=== PATIENT | male | born 1960 | race Caucasian/White ===

== ENCOUNTER → 2021-07-19 11:38 | Outpatient (CLI) | payer OTHER, SELFPAY ==
[2021-07-19 12:53] LABS: COVID19 -Nasal RAPID Negative (Negative)
== END ==
PROVIDERS: Family Provider Family Medicine; PCP Family Medicine; Visit Provider Family Medicine Sleep Medicine
DX: Z20.822 Contact with and (suspected) exposure to COVID-19 (principal)
CPT/HCPCS: 87635; C9803

== ENCOUNTER 2021-07-20 06:06 | Day surgery (SDC) | payer OTHER, SELFPAY ==
[2021-07-12 13:47] VITALS: BMI 27.5
[2021-07-20] VITALS (16 sets, daily range): BP systolic 83–151; BP diastolic 53–89; PULSE 52–87; RESP 15–189; TEMP 35.4–36.7; O2SAT 93–98; BMI 27.5
--- NOTE | 2021-07-20 | DI.RAD.S_ITS ---
PROCEDURE: XR HIP W PEL IF DONE LT 2V INDICATIONS: LEFT SEUN TECHNIQUE: Intraoperative fluoroscopic views of the left hip were acquired. COMPARISON: None. FINDINGS: Bones: Intraoperative fluoroscopic views demonstrate placement of a left total hip arthroplasty. IMPRESSION: Intraoperative fluoroscopic views of left hip arthroplasty. Dictated by: Maria Victoria Xie M.D. on 07/20/2021 at 11:02 Approved by: Maria Victoria Xie M.D. on 07/20/2021 at 11:03
--- NOTE | 2021-07-20 06:00 | DI.RAD.S_ITS ---
PROCEDURE: XR HIP W PEL IF DONE LT 2V INDICATIONS: prosthesis placement total left hip TECHNIQUE: AP pelvis and lateral view of the left hip acquired. COMPARISON: [facility], [place], XR HIP W PEL IF DONE LT 2V, 07/20/2021, 10:13. FINDINGS: Bones: Patient is status post left total hip arthroplasty, with hardware components in expected positions. The hip joint appears congruent. The visualized bony structures appear intact. Soft tissues: Overlying postoperative changes are noted. No suspicious soft tissue densities. IMPRESSION: Status post left total hip arthroplasty. Dictated by: Maria Victoria Xie M.D. on 07/20/2021 at 11:27 Approved by: Maria Victoria Xie M.D. on 07/20/2021 at 11:28
[2021-07-20] MEDS: ACETAMINOPHEN 325 MG TABLET 975 MG PO (06:42)
[2021-07-20] MEDS: CELECOXIB 200 MG CAPSULE PO (06:43)
[2021-07-20] MEDS: PREGABALIN 75 MG CAPSULE PO (06:43)
[2021-07-20] MEDS: VANCOMYCIN 1,000 MG/200 ML PIGGYBACK 200 MG IV (07:01)
[2021-07-20] MEDS: LACTATED RINGERS 1,000 ML 42 ML IV ×2 (07:02→11:23)
--- NOTE | 2021-07-20 07:36 | PM.PREOP ---
Pre-operative Note COVID-19 COVID-19 status: Negative Interval Note History & Physical reviewed/Exam performed by Physician: Yes Changes to H&P: No
--- NOTE | 2021-07-20 07:37 | P.OP_ITS ---
Operative Date/Time/Diagnoses Date of procedure: 07/20/21 Time of procedure: 07:40 Pre-op diagnosis: left hip OA Post-op diagnosis: same Procedure & Clinicians Procedure: Left total hip arthroplasty anterior approach Same procedure as scheduled: Yes Indications: The patient has had progressively worsening left hip pain with radiographic vogt ges consistent with arthritis. Non-operative management has failed and the patient has requested total hip replacement. The risks, benefits and alternatives to surgery were discussed with the patient prior to proceeding. Risks discussed included, but were not limited to, failure to relieve pain, leg length discrepancy, dislocation, stiffness, infection, nerve damage, deep venous thrombosis, pulmonary embolism, stroke, coma, heart attack, permanent paralysis and , as well as the potential need for eventual revision of the prosthetic. Surgeon: Gloria Singh Silk Conditioner: Dayron Aragon Anesthesia Type: General and Spinal Operative Notes Findings: Severe left hip osteoarthritis, adequate stability, adequate bone Closure Type: primary Specimen(s): none sent Prosthetic devices, grafts, tissues, transplants, or devices: Singh and nephew size 60 R3 cup, size 8 high offset anthology stem, 36 by - 3 femoral head, 36 neutral poly liner Estimated Blood Loss (mL): 250 Blood products transfused: none Procedure in detail: The patient was brought to the operating room. Patient was carefully positioned in the supine position. Time-out was performed and antibiotics were given. Anesthesia was induced. He was positioned in the on the table in order to allow hyperextension of the hip. The left lower extremity was prepped and draped in a standard sterile fashion. An anterior left hip incision was made 1 fingerbreadth lateral to the anterior superior iliac spine and extended distally towards the greater trochanter. Dissection was carried out through skin and subcutaneous tissues. Superficial hemostasis was achieved. The fascia over the tensor fascia day was defined and incised with a knife. Two Allis clamps were used to grasp the fascia. Tensor fascia day was retracted laterally. A gelpi retractor was placed. Dissection was carried out down along the neck. The circumflex vessels were carefully identified and cauterized with the Aqua Mantis. There was good visualization of the femoral neck. A Cobra was placed superior to the neck and the gluteus fibers were carefully stripped from that superior aspect of the capsule. A 2nd retractor was placed along the inferior aspect of the neck. The rectus insertion along the capsule was partially released. A 3rd retractor that was then gently placed over the rim of the acetabulum under the rectus. Capsule was carefully incised and released from the intertrochanteric line circumferentially superior to the mid sagittal line and inferiorly to the mid sagittal line until the lesser trochanter was palpable. A tag stitch was placed both in the superior and inferior limb of the capsular insertion. Along the acetabulum capsule was also released up to the mid sagittal 12:00 position. A portion of the labrum was resected. A saw was used to perform an osteotomy at the level of the intertrochanteric line and the junction of the superior femoral neck leaving approximately 1 finger breath of residual inferior neck above the lesser trochanter. A 2nd cut was made along the femoral neck at the base of the head and a napkin ring of neck was removed. Corkscrew was placed in the femoral head and the head was removed without difficulty. Retractors were then repositioned around the acetabulum. Residual labrum was resected and additional osteophytes were removed. A reamer that was 4 mm below the templated size was placed by hand in the acetabulum and it was reamed to centralize the acetabulum. It was then reamed up to 2 under the templated size and fluoroscopy was brought in to confirm the position of the reaming and depth of reaming. I reamed 1 under the anticipated size. A trial cup was placed and noted that it was appropriately sized and fluoroscopy confirmed position and depth. The component was open and inserted without difficulty fluoroscopic imaging was used to confirm that the cup had been adequately seated and was well positioned. It was further stabilized with 2 screws. Neutral poly liner was placed. The cup was tested and noted to be stable. Attention was then directed to the femur. The femur was gently hyperextended additional capsular release was performed as needed in order to allow adequate visualization of the proximal femur with elevation of the femur. Patient was placed in a hyperextended slightly adducted position with maximum external rotation. Box osteotome was used to check for any residual neck as well as sclerotic bone along the trochanter. [place] pepper was placed in the femur. Additional broaching was performed. Canal finder was used to determine the alignment of the canal and position. Size 1 broach was placed. The canal was then appropriately broached up to the templated size as long as there was adequate stability of the broach and serial advancement of the broach without excessive impingement. Specific attention was directed at avoiding varus attempting to direct the distal aspect of the broach more anteriorly and avoiding excessive anteversion. Trial reduction showed acceptable range of motion, good stability, no posterior impingement, nondenominational of leg length and appropriate lateral shuck. I also hyperflexed the hip and checked that there was no impingement anteriorly and there was good stability with flexion, a dduction and internal rotation. Marcaine and Exparel were injected. The stem was placed without difficulty. Repeat trial reduction and x-ray showed acceptable overall position, length, and no evidence of the femoral fracture. Final head was placed. Wound was meticulously irrigated with normal saline. The hip was reduced and additional Exparel and Marcaine were injected. The capsule was closed with interrupted nonabsorbable sutures. The fascia of the tensor was closed with interrupted and running Vicryl. No drain was placed. Any tensor fascia day muscle that appeared to be contused or injured which was a minimal amount was carefully resected. Capsule around the tensor was injected with Exparel and Marcaine. The skin was closed with barbed stitches for the subcutaneous tissue and skin. We also used surgical glue. The wound was dressed sterilely. Brief Betadine soak was also used and was meticulously irrigated with normal saline. Patient was transferred to recovery room in satisfactory condition. Complications: none Post-operative Condition: stable Disposition: Acute Care Plan for aftercare: The patient will be maintained on a standard total hip replacement protocol with weight bearing as tolerated and anterior hip precautions. The patient will receive Aspirin and sequential compression devices for DVT prophylaxis. The patient will be discharged home when safe for the home environment.
[2021-07-20] MEDS: TRANEXAMIC ACID 1,000 MG VIAL 1000 MG INJ ×2 (08:05→10:58)
[2021-07-20] MEDS: CEFAZOLIN 2 GM/20 ML SYRINGE IV ×2 (08:10→15:33)
--- NOTE | 2021-07-20 08:38 | SUR.OPER ---
Patient supine on padded Royal table, one arm on padded arm board at <90, other arm padded and secured with tape across patient's chest with elbow gel padded, both legs secured in padded traction boots with heels properly in boot and positioned per surgeon, padded post at patient's groin, pressure points checked and padded.
[2021-07-20] MEDS: BUPIVACAINE 0.25% (PF) 60 ML, EPINEPHrine 0.3 MG INJ (08:48)
[2021-07-20] MEDS: BUPIVACAINE LIPOSOME 266 MG/20 ML VIAL INJ (10:39)
[2021-07-20] MEDS: ONDANSETRON 4 MG/2 ML INJ IV ×2 (11:12→12:03)
[2021-07-20] MEDS: LACTATED RINGERS 1,000 ML 125 ML IV (12:05)
[2021-07-20] MEDS: ACETAMINOPHEN 325 MG TABLET 650 MG PO ×2 (13:26→21:27)
[2021-07-20] MEDS: IBUPROFEN 400 MG TABLET PO ×3 (13:27→21:27)
[2021-07-20] MEDS: OXYCODONE IR 5 MG TABLET 10 MG PO ×2 (13:42→19:04)
--- NOTE | 2021-07-20 14:46 | PC.NURSE ---
Addendum entered by Christine Mena R.N. 07/20/21 19:34: pt given 500 cc bolus per MD orders for hypotension. He later is much improved normotensive, and denies dizziness and w/o n/v. He is able to ambulate with FWW to nurse's station and back to his room and void w/o difficulty. Original Note: Pt arrived from PACU to Room 218 at 1135 a.m. He is very talkative and pleasant. Reports feeling dizzy and nauseated with a head ache. Zofran administered and LR at 125ml/hr. Pt reports dull sensation to BLE's, able to move BLE's +CMS. He vomits x2 100 cc of emesis. BP slightly low, SB. Pt reports feeling somewhat better after vomiting. He reports increased pain to L hip at 7/10 and is given oxycodone 10mg PRN. MD at bedside this afternoon encouraging movement, nicotine patch removed. Encouraged patient to dangle at edge of bed. At 1400 he is assisted to dangle at the edge of bed, and reports an increase in dizziness and nausea, noted BP with large fluctuations. He is assisted to lay back down and BP remains 120's /50's HR 60's. He requests to rest, and reports pain controlled. Continuous monitoring. He is due to void by 1700.
--- NOTE | 2021-07-20 15:10 | PT.IPTN ---
Current Diagnoses Unilateral primary osteoarthritis, left hip (07/20/21) Surgery Performed Operation Date: 07/20/21 07:45 Actual Procedures p Total Hip Arthroplasty/Anterior Approach(Left) - Gloria Singh MD Physical Therapy Treatment Note M3 PT-IP Subjective Start: 07/20/21 15:45 Freq: NEEDED Status: Active Protocol: Document 07/20/21 15:10 AB (Rec: 07/20/21 15:49 AB [id number]) Subjective Physical Therapy Visit Type Type Administrative Note Notes EMR reviewed and checked pt. nurse in room with pt and pt has BP of 79/39. nurse stated that they sat pt on EOB and with decrease in BP. pt also has nausea and dizziness. pt supine in bed and spouse in room. agreed to provide PLOF and home set up information. PT eval on hold due to low BP and will check pt tomorrow. Pt lives at [place] and wants to see PT [place] tomorrow [place]. set up PT tomorrow with pt and spouse at ~ 930 am and earlier if possible and pt agreed.
[2021-07-20] MEDS: LACTATED RINGERS 500 ML 1000 ML IV (15:35)
[2021-07-20] MEDS: DOCUSATE 100 MG CAPSULE PO (21:28)
[2021-07-20] MEDS: ASPIRIN EC 81 MG TABLET PO (21:28)
[2021-07-21] MEDS: LACTATED RINGERS 1,000 ML 125 ML IV (00:23)
[2021-07-21] MEDS: IBUPROFEN 400 MG TABLET PO ×3 (00:24→08:50)
[2021-07-21] MEDS: CEFAZOLIN 2 GM/20 ML SYRINGE IV (00:24)
[2021-07-21 05:45] LABS: Hematocrit 35.1 % (41-53)
[2021-07-21 06:21] VITALS: BP 121/69; PULSE 67; RESP 17; TEMP 36.7; O2SAT 97
--- NOTE | 2021-07-21 07:38 | P.DS_ITS ---
History of Present Illness History of Present Illness Date Patient Seen: 07/21/21 Time Patient Seen: 07:38 Chief complaint: Left hip pain s/p left SEUN Narrative: Patient is complaining of [id number] left hip pain this morning. He denies any new numbness or tingling. He notes his postoperative nausea and vomiting have resolved. Overall he is very anxious to get home on the [place] this morning. He has not worked with physical therapy yet. Discharge Providers Provider Discharge Date: 07/21/21 Primary care physician: Max House MD Consults: 07/20/21 06:00 Consult to Anesthesiology Routine Comment: Consulting Provider: Anesthesiologist Reason for consultation: Regional block for post operative pain control 07/20/21 11:51 Consult to Discharge Planning Routine Comment: Consult to Physical Therapy Evaluate & Treat Comment: Physician Instructions: post op SEUN protocol Consult to Respiratory Therapy Evaluate & Treat Comment: Physician Instructions: Evaluate and treat Discharge provider: Lucy Black PA-C Summary Hospital Course Discharge Diagnosis: Left hip osteoarthritis Hospital Course: Operative Date/Time/Diagnoses Date of procedure: 07/20/21 Time of procedure: 07:40 Procedure & Clinicians Procedure: Left total hip arthroplasty anterior approach Same procedure as scheduled: Yes Indications: The patient has had progressively worsening left hip pain with radiographic changes consistent with arthritis. Non-operative management has failed and the patient has requested total hip replacement. The risks, benefits and alternatives to surgery were discussed with the patient prior to proceeding. Risks discussed included, but were not limited to, failure to relieve pain, leg length discrepancy, dislocation, stiffness, infection, nerve damage, deep venous thrombosis, pulmonary embolism, stroke, coma, heart attack, permanent paralysis and , as well as the potential need for eventual revision of the prosthetic. Surgeon: Gloria Singh Lineman Service Or Work Dispatcher: Dayron Aragon Anesthesia Type: General and Spinal Operative Notes Findings: Severe left hip osteoarthritis, adequate stability, adequate bone Closure Type: primary Specimen(s): none sent Prosthetic devices, grafts, tissues, transplants, or devices: Singh and nephew size 60 R3 cup, size 8 high offset anthology stem, 36 by - 3 femoral head, 36 neutral poly liner Estimated Blood Loss (mL): 250 Blood products transfused: none Status at Discharge Cognitive/behavioral status at discharge: oriented Functional status at discharge: uses cane/walker Overall status at discharge: patient is progressing back to baseline Exam Vital Signs (past 8 hours): - 07/21/21 06:21 Temperature 98.0 F Pulse Rate 67 Respiratory Rate 17 Blood Pressure 121/69 Pulse Oximetry 97 Oxygen Delivery Method Room Air Oxygen Flow Rate 0 Narrative Exam Narrative: Pleasant but anxious 60-year-old male, resting comfortably in his chair, no acute distress. Dressing is clean, dry, intact. Bilateral lower extremity: Motor functions are grossly intact, sensation is grossly intact to light touch, calves are soft and nontender to palpation. Objective Labs Result Diagrams: 07/21/21 05:20 Labs: Laboratory Results - last 24 hr 07/21/21 05:20 Hgb 12.0 L Hct 35.1 L PFSH Medical History Osteoarthritis Surgical History History of vasectomy Hx of nasal septoplasty Hx of tonsillectomy Status post appendectomy (1992) Social History household members: spouse Smoking Status: Current every day smoker alcohol intake: current Discharge Assessment & Plan Assessment and Plan Assessment: Stable status post left total hip arthroplasty, anterior approach Plan of Treatment: -mobilize with PT. Weightbearing as tolerated with front wheel walker. Maintain anterior hip precautions x6 weeks -continue multimodal pain management -aspirin 81 mg twice daily x6 weeks for DVT prophylaxis -DC home today once cleared by PT Discharge Plan Discharge Plan Patient Disposition: Home Discharge orders & Medications Discharge Orders: Discharge (Order); Ordered 07/21/21 Ordered By: Lucy Black Prescriptions: New acetaminophen 500 mg capsule 500 mg PO Q4H MDD Max 3000 mg per day PRN (Reason: fever or pain) Qty: 90 0RF aspirin [Adult Low Dose Aspirin] 81 mg tablet,delayed release (DR/EC) 81 mg PO BID 42 Days Qty: 84 0RF Rx Instructions: Prevent blood clots docusate sodium 100 mg tablet 100 mg PO BID PRN (Reason: Constipation from narcotic pain meds) Qty: 20 0RF ibuprofen 400 mg Tablet 400 mg PO Q4HR MDD Max 2400 mg per day PRN (Reason: Pain/inflammation) Qty: 90 0RF oxycodone 5 mg Tablet 10 mg PO Q4H PRN (Reason: Pain, Severe (7-10)) Qty: 42 0RF Discontinued ibuprofen 800 mg Tablet 800 mg PO DAILY PRN (Reason: Pain) 0RF Follow up/Referrals: Gloria Singh MD [Physician] - (10-14 days for postoperative visit) Max House MD [Primary Care Provider] - Diet/Activity/Treatments Diet: Diet as Tolerated Other treatments: Medications: -Aspirin 81mg twice daily x6 weeks to prevent blood clots. -OTC Tylenol 500 mg 1 tablet every 4 hours as needed for pain/fever. Max 6 tablets per day. -Ibuprofen 400 mg 1 tablet every 4 hours as needed for pain/inflammation. Max 2,400 mg per day. -Oxycodone 5 mg take 1-2 tablets every 4 hours as needed for moderate-severe pain (narcotic pain medication). -As needed medications: -Ducolax and /or MiraLax as needed for constipation from narcotic pain medications. -Pepcid AC as needed for stomach upset (usually from aspirin or ibuprofen). Dressing/Wound care: -Keep Aquacell dressing in place until postoperative follow-up office visit. -Okay to shower. Keep wound out of direct water stream. No soaking or subme rging until all the scabs fall off (approximately 6 weeks). -Please call the office if dressing becomes wet, soiled, or saturated. Activities: -Maintain anterior hip precautions x6 weeks. -Weight-bearing as tolerated. Use front wheeled walker, and progress to cane when safe. -Continue with home exercises as directed by your physical therapist. -Elevate ?toes above the nose if you have significant swelling in your lower leg. (A wedge pillow is easiest.) -Ice your incision as needed for pain/inflammation/swelling. Protect your skin with a folded pillowcase. Follow-up: -Follow-up with your surgeon or PA in the office in 10-14 days after surgery. -Follow-up with your surgeon 6 weeks postoperatively. Call the office if you have chest pain, shortness of breath, significant swelling that will not resolve with elevating, fever over 101?, significantly worsening pain. [facility]: [phone] Skin/Wound/Dressing Care Report to your healthcare provider any signs of infection, such as:: chills, fe valente, night sweats, unusual drainage and unusual redness Visit Report/Discharge Packet Instructions: DI for Hip Replacement Stand Alone Forms: Surgery Discharge Discharge Data Primary Care Provider: Max House Attending Provider: Gloria Singh
[2021-07-21 07:55] VITALS: BP 107/68; PULSE 76; RESP 16; TEMP 36.7; O2SAT 96
[2021-07-21] MEDS: ACETAMINOPHEN 325 MG TABLET 650 MG PO (08:50)
[2021-07-21] MEDS: DOCUSATE 100 MG CAPSULE PO (08:50)
[2021-07-21] MEDS: ASPIRIN EC 81 MG TABLET PO (08:50)
--- NOTE | 2021-07-21 09:15 | PT.IIE ---
Current Diagnoses Unilateral primary osteoarthritis, left hip (07/20/21) Surgery Performed Operation Date: 07/20/21 07:45 Actual Procedures p Total Hip Arthroplasty/Anterior Approach(Left) - Gloria Singh MD Surgical History (Last Reviewed 07/21/21 @ 07:40 by Lucy Black PA-C) Status post appendectomy (1992) Medical History (Last Reviewed 07/21/21 @ 07:40 by Lucy Black PA-C) Osteoarthritis Physical Therapy Inpatient Evaluation/Re-Eval M1 PT/OT-IP Prior Functional Status Start: 07/20/21 15:45 Freq: NEEDED Status: Discharge Protocol: Document 07/21/21 09:15 AB (Rec: 07/21/21 14:14 AB [id number]) Medical Review Prior Functional Status Medical History Reviewed Yes Communication able to make needs known Mobility and Gait pt stated that he is independent with all mobilities and ambulation without AD Social History Household Members spouse Living Arrangements House Number of Floors (Floors) Two Floors Number of Stairs To Enter/Railing? pt stays on main level of the house 8 steps B rails to enter Home Environment Standard Height Toilet,Walk in Shower Home Equipment Front Wheel Walker,Straight Cane,Raised Toilet Seat Without Armrests M2 PT-IP Current Condition Start: 07/20/21 15:45 Freq: NEEDED Status: Discharge Protocol: Document 07/21/21 09:15 AB (Rec: 07/21/21 14:14 AB [id number]) Physical Therapy Current Condition Current Condition Evaluation Date 07/21/21 Treatment Diagnosis s/p L SEUN anterior approach; difficulty in walking Onset Date 07/20/21 M3 PT-IP Subjective Start: 07/20/21 15:45 Freq: NEEDED Status: Discharge Protocol: Document 07/21/21 09:15 AB (Rec: 07/21/21 14:14 AB [email or web address]) Subjective Physical Therapy Visit Type Type Initial Evaluation Visit Start Time 09:15 Visit Stop Time 10:15 Total Visit Minutes 60 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 Physical Therapy Visit Comments Patient Comments agreeable to do PT Therapy Pain Assessment Pain When Pain Assessed At Rest Pain Present Pain Present Pain Reported Location Left Hip Intensity 5 Scale Used Numeric (0 - 10) Pain Management Techniques Elevation,Modification of Treatment,Re-positioning, Timing of Activity with Medications M4 PT-IP Mobility and Gait Start: 07/20/21 15:45 Freq: NEEDED Status: Discharge Protocol: Document 07/21/21 09:15 AB (Rec: 07/21/21 14:14 AB [id number]) PT-Bed Mobility Assessment Supine to Sit Supine to Sit Standby Assistance Sit to Supine Sit to Supine Standby Assistance PT-Transfer Assessment Sit to and From Stand Sit to and from Stand Standby Assistance,Contact Guard Assistance,1 Person Assistance,Use of Upper Extremities Equipment Transfer Assistive Device Gait Belt,Front Wheeled Walker Orthotic/Prosthetic Devices or Brace: No Transfers Transfer Destination Bed Transfer Technique ambulated Transfer Ability Level of Assist Standby Assistance,Contact Guard Assistance,1 Person Assistance,Use of Upper Extremities Comments Mobility Comments educated pt on hip precautions . spouse in room with pt. pt can be impulsive. completed sit to stand from the chair CGA and ambulated to the EOB ~ 12 ft CGA and cues for L quads activation. pt with slight buckling on L knee during walking and educated for stability and safety. completed sit<>supine SBA. caregiver training conducted. educated pouse on how to use safety belt and how to assist pt. spouse was able to pust saft belt on pt. assisted pt with sit to stand ambulation pt in the uneedawasy ~ 150 ft CGA with spouse assisting and uces for hip precautions, safety and pacing. pt completed up/down steps using B rails CGA and cues initially with PT assisting and repeated with spouse assisting. spouse was able to assist pt with stairs. pt ambulated back towards the room using FWW CGA. ambulated to the chair. positioned pt on the chair. call light and table placed within reach. Gait Assessment Gait Gait Assistance Required: Contact Guard Assist Distance (Feet) 150 Able to Maintain Weight Bearing Status Yes During Gait Assistive Devices Assistive Device Gait Belt,Front Wheeled Walker Orthotic/Prosthetic Devices or Brace: No Gait Deviations General Gait Pattern Decreased Stride Length, Decreased Feet Clearance Factors Limiting Gait Function Factors Limiting Gait Function Decreased Activity Tolerance, Decreased Strength,Limited Range of Motion,Pain,Poor Balance,Poor Safety Awareness Stair Climbing Assessment Evaluation Level of Assist On Stairs Contact Guard Assistance Devices Stair Climbing Assistive Devices Left Railing,Right Railing Technique/Endurance Stair Climbing Direction Ascend and Descend Stair Climbing Technique Step to Step Number of Steps Climbed 3 Query Text: Stair Climbing Set # Repetitions (reps) 2 PT-Balance Assessment Sitting Balance and Reactions Static Sitting Balance Ability Normal Dynamic Sitting Balance Ability Good Standing Balance and Reactions Static Standing Balance Ability Fair Dynamic Standing Balance Ability Fair Device Used FWW M5 PT-IP Objective Assessments Start: 07/20/21 15:45 Freq: NEEDED Status: Discharge Protocol: Document 07/21/21 09:15 AB (Rec: 07/21/21 14:14 AB [id number]) Orientation Orientation/Cognition Level of Alertness Alert Orientation Name,Place,Situation Language Function Ability Hard of Hearing Safety Awareness Decreased Safety Awareness Memory Description No Deficits Noted Gross Range of Motion Lower Extremity ROM Assessment Within Functional Limits Strength Lower Extremity Strength Assessment Left Impaired Hip 3+/5 Knee 4-/5 Coordination Assessment Gross Coordination Gross Coordination WNL Muscle Tone Muscle Tone WNL Yes M6 PT-IP Treatment Start: 07/20/21 15:45 Freq: NEEDED Status: Discharge Protocol: Document 07/21/21 09:15 AB (Rec: 07/21/21 14:14 AB [id number]) Physical Therapy Treatment Education Education Provided Precautions,Weight Bearing Status,Post-Op Packet,Safety M7 PT-IP Assessment and Plan Start: 07/20/21 15:45 Freq: NEEDED Status: Discharge Protocol: Document 07/21/21 09:15 AB (Rec: 07/21/21 14:14 AB [id number]) PT Summary Assessment and Plan Potential Rehabilitation Potential Good Status of Condition at Evaluation Stable Summary Impairments Pain,ROM,Strength,Balance, Coordination,Sensation,Tone, Cognition,Bed Mobility, Transfers,Gait,Activity Tolerance Assessment Summary pt requiring CGA with mobility using FWW. caregiver training conducted and spouse was able to assist pt safely. pt plans to go home today. pt has outpt PT scheduled. Goals Bed Mobility Goal Independent Transfer Goal Independent,Front Wheeled Walker Gait Goal Independent,Front Wheel Walker Gait Distance 250 Other Goals up/down 8 steps B rails SBA Days to Meet Goals 3 Frequency of Treatment Frequency Of Treatment Twice a Day Treatment Plan Physical Therapy Treatment Plan Bed Mobility Training,Transfer Training,Gait Training, Therapeutic Exercise,Balance Retraining,Post Op Education, Discharge Planning,Hot or Cold Pack,Neuromuscular Re-ed, Coordination Retraining,Manual Therapy Precautions Anterior Hip Precautions No Hip Extension,No Hip External Rotation Weight Bearing Status Weight Bearing Status Weight Bear as Tolerated Allowed Weight Bearing Amount (enter % LLE WBAT or #) (%) Recommendations To Nursing Amount of Assist Needed 1 Person Assist Discharge Recommendations PT Discharge Recommendations Home with Assistance, Outpatient PT Transportation Needs at Discharge Private Vehicle
[2021-07-21] MEDS: OXYCODONE IR 5 MG TABLET 10 MG PO (09:40)
--- NOTE | 2021-07-21 11:07 | PC.NURSE ---
Day shift: Pt left unit via WC at approx 1100. Paperwork signed and all questions answered. Pt has all personal belongings. Discharge done by DENITA Rodriguez. They have ferry boarding pass now also. Pt sated I'm real happy to be getting out of here now.
== END 2021-07-21 11:15 | disposition home or self-care (01) ==
LOC: OR 06:10 → AC 06:10
PROVIDERS: Family Provider Family Medicine; PCP Family Medicine; Referring Provider Orthopaedic Surgery; Visit Provider Orthopaedic Surgery
PROC: (CPT 27130; principal; 2021-07-20 07:45)
DX: M16.12 Unilateral primary osteoarthritis, left hip (principal); F17.210 Nicotine dependence, cigarettes, uncomplicated
CPT/HCPCS: 27130; 36415; 73502; 76000; 85014; 85018; 97161; 97530; C1776; C9290; J0171; J0690; J2250; J2405; J3010

== ENCOUNTER → 2022-05-01 11:56 | Outpatient (CLI) | payer OTHER, SELFPAY ==
[2021-07-20 11:52] VITALS: BMI 27.5
--- NOTE | 2022-05-01 | DI.US.S_ITS ---
PROCEDURE: US ABDOMEN LIMITED INDICATIONS: right groin pain, please evaluate for hernia TECHNIQUE: Real-time focused scanning was performed of the abdomen, with image documentation. Color Doppler was also utilized. COMPARISON: None. FINDINGS: Scanning is performed at the area of clinical concern within the right groin. No findings of hernia can be seen. No masses are seen. Normal appearing lymph nodes are seen. No abnormal vascularity is seen. IMPRESSION: Negative for hernia of the right groin. No masses are seen. Dictated by: Konrad Ferrer M.D. on 05/01/2022 at 11:48 Approved by: Konrad Ferrer M.D. on 05/01/2022 at 11:49
== END ==
PROVIDERS: Family Provider Family Medicine; PCP Family Medicine; Referring Provider Family Medicine; Visit Provider Family Medicine
DX: M25.551 Pain in right hip (principal); R10.31 Right lower quadrant pain
CPT/HCPCS: 76705

== ENCOUNTER → 2022-08-23 12:05 | Outpatient (CLI) | payer OTHER, SELFPAY ==
[2021-07-20 11:52] VITALS: BMI 27.5
--- NOTE | 2022-08-23 12:08 | DI.MRI.S_ITS ---
PROCEDURE: MR HIP RT WO CON INDICATIONS: PAIN IN RIGHT HIP TECHNIQUE: Noncontrast coronal T1 spin echo and STIR through the bony pelvis. Coronal and axial T2 fast spin echo with fat saturation, sagittal T1 spin echo, and oblique axial T2 fast spin echo with fat saturation through the hip. COMPARISON: [facility], CR, XR PELVIS WITH BILATERAL LATERAL HIPS, 08/01/2022, 9:42. FINDINGS: Image quality: Degraded by left hip arthroplasty artifact. Bones and joints: There is moderate degenerative marrow edema within the right superior femoral head in the right acetabulum. Left hip arthroplasty metallic artifact is present. Bone marrow of the pelvic ring and proximal femurs demonstrates otherwise normal signal throughout. No intraosseous lesions or fractures. No avascular necrosis of the femoral heads. The alpha angle of the femur is greater than normal measuring 63 ?.The visualized lower lumbar spine appears normally aligned. Tendons and ligaments: The gluteus medius and minimus tendons appear intact, without associated muscle atrophy. The nearby proximal iliotibial band also appears intact. The iliopsoas tendon appears intact, without adjacent bursal fluid collections or evidence for impingement syndrome. The origin of the hamstring tendon is intact at the ischial tuberosity, as well as the associated sacrotuberous ligament. The straight and reflected heads of the rectus femoris muscle origin appear intact, as well as the conjoint tendon. The ligamentum teres appears intact where visualized. Labrum and cartilage: Diffuse right hip labral tearing with extensive paralabral cyst formation. Soft tissues: Visualized muscles demonstrate normal bulk and internal signal. Quadratus femoris muscle demonstrates no internal edema to suggest ischiofemoral impingement. The proximal sciatic neurovascular bundle appears normal adjacent to the hamstring tendons. No free pelvic fluid. Bladder wall thickness is normal. Prostate is enlarged and heterogeneous. IMPRESSION: 1. 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 2. Right hip osteoarthritis with extensive right hip labral tearing and degenerative marrow edema. 3. Prostate enlargement. Recommend correlation with PSA values. Dictated by: Anu Tellez M.D. on 08/23/2022 at 13:29 Transcribed by: VEL on 08/23/2022 at 13:34 Approved by: Anu Tellez M.D. on 08/23/2022 at 16:10
== END ==
PROVIDERS: Family Provider Family Medicine; PCP Family Medicine; Referring Provider Orthopaedic Surgery; Visit Provider Orthopaedic Surgery
DX: S73.191A Other sprain of right hip, initial encounter (principal); M16.11 Unilateral primary osteoarthritis, right hip; M25.551 Pain in right hip; N40.0 Benign prostatic hyperplasia without lower urinary tract symptoms
CPT/HCPCS: 73721

== ENCOUNTER → 2024-05-04 09:51 | Outpatient (CLI) | payer OTHER, SELFPAY ==
[2021-07-20 11:52] VITALS: BMI 27.5
--- NOTE | 2024-05-04 09:55 | DI.RAD.S_ITS ---
PROCEDURE: XR CHEST 2V INDICATIONS: PRE EXAM TEST TECHNIQUE: 2 views of the chest were acquired. COMPARISON: None. FINDINGS: Heart, mediastinum and pulmonary vascular: Heart is normal in size and configuration. Mediastinum is unremarkable. Pulmonary vascular is normal. Lungs: Scattered tiny calcified granulomas seen throughout the lungs are compatible old infection Pleural spaces: Normal-no effusions or pneumothorax. Bones and soft tissues: Moderate degenerative disc disease seen throughout the thoracic spine IMPRESSION: No acute cardiopulmonary disease Dictated by: Jacques Chase M.D. on 05/05/2024 at 9:41 Approved by: Jacques Chase M.D. on 05/05/2024 at 9:42
== END ==
PROVIDERS: Family Provider Family Medicine; PCP Family Medicine; Referring Provider Physician Assistant; Visit Provider Physician Assistant
DX: Z01.818 Encounter for other preprocedural examination (principal); M51.34 Other intervertebral disc degeneration, thoracic region
CPT/HCPCS: 71046

== ENCOUNTER 2024-05-12 08:32 | Day surgery (SDC) | payer OTHER, SELFPAY ==
[2021-07-20 11:52] VITALS: BMI 27.5
[2024-04-29 08:38] VITALS: BMI 28.7
[2024-05-12] VITALS (11 sets, daily range): BP systolic 100–141; BP diastolic 54–88; PULSE 61–82; RESP 15–21; TEMP 35.7–36.7; O2SAT 93–100; BMI 28.2
--- NOTE | 2024-05-12 | DI.RAD.S_ITS ---
PROCEDURE: XR HIP W PEL IF DONE RT 4V INDICATIONS: anterior total right Hip TECHNIQUE: Intraoperative images of the right hip. COMPARISON: [facility], CR, XR HIP W PEL IF DONE LT 2V, 07/20/2021, 11:01. [facility], CR, XR HIP W PEL IF DONE LT 2V, 07/20/2021, 10:13. FINDINGS: Intraoperative images demonstrate a right hip total arthroplasty in progress. The total fluoroscopy time was 40 seconds. IMPRESSION: Intraoperative images of a right hip total arthroplasty. Please see the operative report for further details. Dictated by: Juan Snow M.D. on 05/12/2024 at 16:50 Approved by: Juan Snow M.D. on 05/12/2024 at 16:51
--- NOTE | 2024-05-12 06:00 | DI.RAD.S_ITS ---
PROCEDURE: XR HIP W PEL IF DONE RT 2V INDICATIONS: SEUN TECHNIQUE: AP pelvis and lateral view of the hip acquired. COMPARISON: [facility], ANGELIQUE, XR HIP W PEL IF DONE RT 4V, 05/12/2024, 12:26. [facility], ANGELIQUE, XR HIP W PEL IF DONE LT 2V, 07/20/2021, 11:01. FINDINGS: Bones: Patient is status post right hip arthroplasty, with hardware components in expected positions. The hip joint appears congruent. The visualized bony structures appear intact. Soft tissues: Overlying postoperative changes are noted. No suspicious soft tissue densities. IMPRESSION: Expected post-operative appearance of a hip arthroplasty. Dictated by: Tree Keen M.D. on 05/12/2024 at 17:15 Approved by: Tree Keen M.D. on 05/12/2024 at 17:15
[2024-05-12] MEDS: LACTATED RINGERS 1,000 ML 42 ML IV (09:00)
[2024-05-12] MEDS: ACETAMINOPHEN 325 MG TABLET 975 MG PO (09:00)
[2024-05-12] MEDS: CELECOXIB 200 MG CAPSULE PO (09:00)
[2024-05-12] MEDS: VANCOMYCIN 1,000 MG/200 ML PIGGYBACK 200 MG IV (09:01)
[2024-05-12] MEDS: ALBUTEROL/IPRATROPIUM 3 ML AMPUL INH (09:18)
--- NOTE | 2024-05-12 10:32 | PM.PREOP ---
Pre-operative Note Interval Note History & Physical reviewed/Exam performed by Physician: Yes Changes to H&P: No
--- NOTE | 2024-05-12 10:33 | PM.OP.1 ---
Operative Date/Time/Diagnoses Date of procedure: 05/12/24 Time of procedure: 11:00 Pre-op diagnosis: right hip AVN, OA Post-op diagnosis: same Procedure & Clinicians Procedure: Right total hip arthroplasty anterior approach Same procedure as scheduled: Yes Indications: The patient has had progressively worsening right hip pain with radiographic changes consistent with arthritis. Non-operative management has failed and the patient has requested total hip replacement. The risks, benefits and alternatives to surgery were discussed with the patient prior to proceeding. Risks discussed included, but were not limited to, failure to relieve pain, leg length discrepancy, dislocation, stiffness, infection, nerve damage, deep venous thrombosis, pulmonary embolism, stroke, coma, heart attack, permanent paralysis and , as well as the potential need for eventual revision of the prosthetic. Surgeon: Gloria Singh [employer] Chief: Naomi Murillo Anesthesia Type: General and Spinal Operative Notes Findings: Severe right hip OA, soft bone, some component of AVN Closure Type: primary Specimen(s): none sent Prosthetic devices, grafts, tissues, transplants, or devices: [employer] R3 size 60, neutral poly liner, one 6.5 mm screw, anthology high offset size 8, 36 x -3 femoral head Estimated Blood Loss (mL): 250 Blood products transfused: none Procedure in detail: The patient was brought to the operating room. Patient was carefully positioned in the supine position. Time-out was performed and antibiotics were given. Anesthesia was induced. He was positioned in the on the table in order to allow hyperextension of the hip. The right lower extremity was prepped and draped in a standard sterile fashion. An anterior right hip incision was made 1 fingerbreadth lateral to the anterior superior iliac spine and extended distally towards the greater trochanter. Dissection was carried out through skin and subcutaneous tissues. Superficial hemostasis was achieved. The fascia over the tensor fascia day was defined and incised with a knife. Two Allis clamps were used to grasp the fascia. Tensor fascia day was retracted laterally. A gelpi retractor was placed. Dissection was carried out down along the neck. The circumflex vessels were carefully identified and cauterized with the Aqua Mantis. The PA was used during the procedure and was essential for intraoperative retraction and safe implantation of the components. There was good visualization of the femoral neck. A Cobra was placed superior to the neck and the gluteus fibers were carefully stripped from that superior aspect of the capsule. A 2nd retractor was placed along the inferior aspect of the neck. The rectus insertion along the capsule was partially released. A 3rd retractor that was then gently placed over the rim of the acetabulum under the rectus. Capsule was carefully incised and released from the intertrochanteric line circumferentially superior to the mid sagittal line and inferiorly to the mid sagittal line until the lesser trochanter was palpable. A tag stitch was placed both in the superior and inferior limb of the capsular insertion. Along the acetabulum capsule was also released up to the mid sagittal 12:00 position. A portion of the labrum was resected. A saw was used to perform an osteotomy at the level of the intertrochanteric line and the junction of the superior femoral neck leaving approximately 1 finger breath of residual inferior neck above the lesser trochanter. A 2nd cut was made along the femoral neck at the base of the head and a napkin ring of neck was removed. Corkscrew was placed in the femoral head and the head was removed without difficulty. Retractors were then repositioned around the acetabulum. Residual labrum was resected and additional osteophytes were removed. A reamer that was 4 mm below the templated size was placed by hand in the acetabulum and it was reamed to centralize the acetabulum. It was then reamed up to 2 under the templated size and fluoroscopy was brought in to confirm the position of the reaming and depth of reaming. I reamed 1 under the anticipated size. A trial cup was placed and noted that it was appropriately sized and fluoroscopy confirmed position and depth. The component was open and inserted without difficulty fluoroscopic imaging was used to confirm that the cup had been adequately seated and was well positioned. It was further stabilized with a single screw. Neutral poly liner was placed. The cup was tested and noted to be stable. Attention was then directed to the femur. The femur was gently hyperextended additional capsular release was performed as needed in order to allow adequate visualization of the proximal femur with elevation of the femur. Patient was placed in a hyperextended slightly adducted position with maximum external rotation. Box osteotome was used to check for any residual neck as well as sclerotic bone along the trochanter. [place] pepper was placed in the femur. Additional broaching was performed. Canal finder was used to determine the alignment of the canal and position. Size 1 broach was placed. The canal was then appropriately broached up to the templated size as long as there was adequate stability of the broach and serial advancement of the broach without excessive impingement. Specific attention was directed at avoiding varus attempting to direct the distal aspect of the broach more anteriorly and avoiding excessive anteversion. Trial reduction showed anterior instability with a polar stem. Even with the lateralized polar stem there was clear evidence of anterior instability. The patient had a fairly significant anterior bone of the femur and it was felt that that was creating some additional anteversion. Patient had good stability with high offset anthology stem on the other side and was felt we should switch to the anthology broach in order to provide increased stability and more ability to adjust the version. The hip was dislocated the trial stem was removed and I broached and prepared for an anthology size 8 high offset. A trial head was placed and a repeat trial reduction showed Acceptable range of motion, good stability, no posterior impingement, roman catholic of leg length and appropriate lateral shuck. The initial instability was anterior with hyperextension that appear to be corrected with a high offset anthology. I also hyperflexed the hip and checked that there was no impingement anteriorly and there was good stability with flexion, adduction and internal rotation. Marcaine and Exparel were injected. The stem was placed without difficulty. Repeat trial reduction and x-ray showed acceptable overall position, length, and no evidence of the femoral fracture. Final head was placed. Wound was meticulously irrigated with normal saline. The hip was reduced and additional Exparel and Marcaine were injected. The capsule was closed with interrupted nonabsorbable sutures. The fascia of the tensor was closed with interrupted and running Vicryl. No drain was placed. Any tensor fascia day muscle that appeared to be contused or injured which was a minimal amount was carefully resected. Capsule around the tensor was injected with Exparel and Marcaine. The skin was closed with barbed stitches for the subcutaneous tissue and skin. We also used surgical glue. The wound was dressed sterilely. Brief Betadine soak was also used and was meticulously irrigated with normal saline. Patient was transferred to recovery room in satisfactory condition. Complications: none Post-operative Condition: stable Disposition: Acute Care Plan for aftercare: The patient will be maintained on a standard total hip replacement protocol with weight bearing as tolerated and anterior hip precautions. The patient will receive Eliquis 5 mg p.o. b.i.d. starting tomorrow and sequential compression devices for DVT prophylaxis. The patient will be discharged home when safe for the home environment.
[2024-05-12] MEDS: BUPIVACAINE LIPOSOME 266 MG/20 ML VIAL INJ (11:51)
[2024-05-12] MEDS: BUPIVACAINE 0.25% W/ EPI 30 ML VIAL INJ ×2 (11:51)
[2024-05-12] MEDS: CEFAZOLIN 2 GM/100 ML PREMIX 100 ML IV ×2 (11:52→20:11)
[2024-05-12] MEDS: IBUPROFEN 400 MG TABLET PO ×2 (15:57→20:12)
[2024-05-12] MEDS: LACTATED RINGERS 1,000 ML 100 ML IV (15:58)
--- NOTE | 2024-05-12 16:17 | PC.NURSE ---
Patient brought up from PACU at 1500. Post op from a Right anterior hip, tolerating PO fluids well. Aquacel dressing dry, clean and intact. Rating pain a 4 around 1600, PO ibuprofen was given. SCDs in place. HOB elevated and patient resting. Kelly is at the bedside.
--- NOTE | 2024-05-12 16:28 | OT.IP.EVAL ---
Current Diagnoses Unilateral primary osteoarthritis, right hip (05/12/24) Surgery Performed Operation Date: 05/12/24 10:45 Actual Procedures p Total Hip Arthroplasty/Anterior Approach(Right) - Gloria Singh MD Past Medical History (Last Reviewed 05/12/24 @ 08:58 by Grace Bejarano, RN) Afib (07/2021) BPH (benign prostatic hyperplasia) DVT (deep venous thrombosis) (07/2021) History of cardioversion (07/2021) HTN (hypertension) Osteoarthritis Pulmonary embolism (07/2021) Surgical History (Last Reviewed 05/12/24 @ 08:59 by Grace Bejarano, RN) History of bowel resection (1992) History of vasectomy Hx of nasal septoplasty Hx of tonsillectomy Status post appendectomy (1992) Occupational Therapy Inpatient Evaluation/Re-Eval M1 PT/OT-IP Prior Functional Status Start: 05/12/24 16:26 Freq: NEEDED Status: Active Protocol: Document 05/12/24 16:26 [facility] (Rec: 05/12/24 16:36 [facility] [id number]) Medical Review Prior Functional Status Communication I Mobility and Gait Pt states only able to walk 500ft before having pain. Activities of Daily Living and IADL's Pt had difficulty with socks and shoes and pain during IADl and IADL needs. Prior Functional Level (Other details) Pt's will be able to assist pt. Social History Household Members spouse Living Arrangements House Number of Floors (Floors) Two Floors Number of Stairs To Enter/Railing? 6-7 steps with bilateral rails to the main level. Home Environment Standard Height Toilet,Walk in Shower Home Equipment Front Wheel Walker,Straight Cane,Raised Toilet Seat w/ Armrests,Program Aide Group Work Additional Social History Comment Pt had L SEUN in 2021 and afterward 2-3 weeks developed DVT and PE. M2 OT-IP Current Condition Start: 05/12/24 16:26 Freq: Status: Active Protocol: Document 05/12/24 16:26 [facility] (Rec: 05/12/24 16:36 [facility] [id number]) Occupational Therapy Current Condition Current Condition Evaluation Date 05/12/24 Treatment Diagnosis S/P R SEUN Anterior approach Diagnosis Onset Date 05/12/24 Post Operative Precautions Anterior Hip Precautions No Hip Extension,No Hip External Rotation M3 OT- IP Subjective and Pain Start: 05/12/24 16:26 Freq: Status: Active Protocol: Document 05/12/24 16:26 [facility] (Rec: 05/12/24 16:36 [facility] [id number]) OT- Subjective Occupational Therapy Visit Type Type Initial Evaluation Visit Start Time 15:50 Visit Stop Time 16:28 Occupational Therapy Visit Comments Patient Comments Pt agreed to get up. Patient/Caregiver Goals TO go home. OT Pain Assessment Pain When Pain Assessed At Rest Pain Present Pain Present Pain Reported Location Left Hip Intensity 4 Scale Used Numeric (0 - 10) M4 OT- IP ADL's Start: 05/12/24 16: Freq: Status: Active Protocol: Document 05/12/24 16: [facility] (Rec: 05/12/24 16:36 [facility] [id number]) OT QQN-Sbit-Ldtnyzf Comments OT Self-Feeding Comments Not at meal time, no concerns. OT ADL-Grooming Comments OT Grooming Comments Not performed, no issues anticipated. OT ADL-Dressing General Eval Lower Body Dressing Ability Maximum Assistance Comments OT Dressing Comments Pt needing assist for socks at this time. Educated to be sure not to cross his RLE into external rotation. OT ADL-Toileting Comments OT Toileting Comments Educated to be mindful on his RLE positioning during toileting and showering needs. OT ADL-Bathing Comments OT Bathing Comments Educated to cover the dressing . Pt states used a standard walker in the shower last time and did not use a shower chair. M5 OT- IP IADL's Start: 05/12/24 16:26 Freq: Status: Active Protocol: Document 05/12/24 16:26 [facility] (Rec: 05/12/24 16:36 [facility] [id number]) OT-Instrumental Activities of Daily Living Deficits IADL Deficits Identified Deficits Home Safety Awareness Awareness of Need for Assistance at Home Good Awareness Ability to Problem Solve Emergency Able to Problem Solve Situations Meal Preparation Meal Preparation Caregiver Provides Assist Campaign Advisor Campaign Advisor Caregiver Provides Assist M6 OT- IP Functional Cognition Start: 05/12/24 16:26 Freq: Status: Active Protocol: Document 05/12/24 16:26 [facility] (Rec: 05/12/24 16:36 [facility] [id number]) Cognitive Factors Limiting Selfcare Function Cognitive Ability Level of Alertness Alert Patient Orientation Name,Place,Situation Attention Span Ability Capable of Focused Attention, Capable of Sustained Attention Ability to Follow Commands Able to Follow One Step Commands Cognitive Comments Cognitive Assessment Comments Pt a little groggy but able to recall his anterior precautions. OT- Vision and Hearing OT- Hearing Assessment OT- Hearing Assessment WFL OT- Vision Assessment Visual Acuity Glasses For Reading Visual Attentiveness WFL Occular Pursuits WFL M7 OT- IP Mobility and Balance Start: 05/12/24 16:26 Freq: Status: Active Protocol: Document 05/12/24 16:26 [facility] (Rec: 05/12/24 16:36 [facility] [id number]) OT- Bed Mobility Assessment Rolling Level of Assistance Standby Assistance Supine to Sit Supine to Sit Assist Standby Assistance OT-Transfer Assessment Sit to and From Stand Sit to and from Stand Minimal Assistance Comments Mobility Comments SBA and vc to keep his toe up for bed mobility needs. CGA/ BRONSON to stand and vc to push up from the bed to stand. Pt getting woozy and able to take a few side steps to the head of the bed with the FWW with CGA. Pt supine 117/67, sitting 123/80, standing 103/ 69 and symptomatic and back sitting 116/69 nursing notified. O2 on RA 98% OT- Balance Assessment Sitting Balance and Reactions Static Sitting Balance Ability Normal Dynamic Sitting Balance Ability Good Standing Balance and Reactions Static Standing Balance Ability Good M8 OT- IP Objective Assessments Start: 05/12/24 16:26 Freq: Status: Active Protocol: Document 05/12/24 16:26 [facility] (Rec: 05/12/24 16:36 [facility] [id number]) OT Gross Range of Motion Upper Extremity Range of Motion Assessment Within Functional Limits OT Strength Upper Extremity Strength Assessment Within Functional Limits M9 OT- IP Assessment and Plan Start: 05/12/24 16:26 Freq: Status: Active Protocol: Document 05/12/24 16:26 [facility] (Rec: 05/12/24 16:36 [facility] [id number]) OT Summary Assessment and Plan Potential Rehabilitation Potential Excellent Analytic Complexity at Evaluation Low Summary OT Impairments Pain,Balance,Functional Mobility,Dressing,Toileting, Bathing,Toilet Transfers, Shower Transfers,Activity Tolerance Progress Towards Goals Progressing Toward Goals,Slow Progress due to Medical Issues Assessment Summary Pt low complexity and main barriers are steps, pain, and feeling woozy when up on his feet. Pt has a supportive to assist wtih his need and has outpt PT already set- up. Goals Dressing Goal Independent Toileting Goal Independent Bathing Goal Standby Assistance Toilet Transfer Goal Independent Shower Transfer Goal Independent Days to Meet Goals 5 Frequency of Treatment Other frequency 5x/week Treatment Plan OT Treatment Plan ADL Training,Functional Mobility,Patient/Family Education,Discharge Planning Other Treatment Recommendations and Next Standing ADL's Treatment Focus Discharge Recommendations OT Discharge Recommendations Home with Assistance, Outpatient PT Home Equipment Needs shower chair? Transportation Needs at Discharge Private Vehicle
[2024-05-12] MEDS: ACETAMINOPHEN 325 MG TABLET 650 MG PO (20:11)
[2024-05-12] MEDS: DOCUSATE 100 MG CAPSULE PO (20:11)
[2024-05-13] VITALS (8 sets, daily range): BP systolic 78–118; BP diastolic 48–77; PULSE 77–90; RESP 18–20; TEMP 36.1–37.4; O2SAT 90–98
[2024-05-13] MEDS: CEFAZOLIN 2 GM/100 ML PREMIX 100 ML IV (04:00)
[2024-05-13 06:33] LABS: Hematocrit 35.4 % (41-53)
[2024-05-13] MEDS: ONDANSETRON 4 MG ODT PO ×2 (07:00→14:41)
[2024-05-13] MEDS: ACETAMINOPHEN 325 MG TABLET 650 MG PO ×2 (07:00→12:33)
[2024-05-13] MEDS: OXYCODONE IR 5 MG TABLET PO ×3 (07:00→21:14)
[2024-05-13] MEDS: IBUPROFEN 400 MG TABLET PO (07:01)
--- NOTE | 2024-05-13 07:36 | PM.DS.1 ---
History of Present Illness History of Present Illness Date Patient Seen: 05/13/24 Time Patient Seen: 07:36 Chief complaint: RT SEUN *OPB* Discharge Providers Provider Primary care physician: Rosario Hull MD Consults: 04/29/24 09:41 Consult to Anesthesiology Routine Comment: Consulting Provider: Anesthesiologist Reason for consultation: Afib/PE history. 05/12/24 06:00 Consult to Anesthesiology Routine Comment: Consulting Provider: Anesthesiologist Reason for consultation: Regional block for post operative pain control Has provider been notified: No 05/12/24 15:03 Consult to Discharge Planning Routine Comment: Consult to Occupational Therapy Evaluate & Treat Comment: Physician Instructions: Evaluate and treat Consult to Physical Therapy Evaluate & Treat Comment: Physician Instructions: post op SEUN protocol Discharge provider: Sid Diaz PA-C Exam Vital Signs (past 8 hours): Oxygen Delivery Method Room Air Oxygen Flow Rate 0 Objective Labs 05/13/24 05:30 Labs: Laboratory Results - last 24 hr 05/13/24 05:30 Hgb 12.0 L Hct 35.4 L PFSH Medical History Pulmonary embolism (07/2021) BPH (benign prostatic hyperplasia) HTN (hypertension) History of cardioversion (07/2021) DVT (deep venous thrombosis) (07/2021) Afib (07/2021) Osteoarthritis Surgical History History of bowel resection (1992) Hx of nasal septoplasty Hx of tonsillectomy History of vasectomy Status post appendectomy (1992) Social History household members: spouse Smoking Status: Current every day smoker alcohol intake: current Discharge Plan Discharge Plan Patient Disposition: Home Discharge orders & Medications Discharge Orders: Discharge (Order); Ordered 05/13/24 Ordered By: Sid Diaz Prescriptions: New Eliquis 5 mg Tablet 5 mg PO BID Qty: 70 0RF Continued sildenafil 100 mg tablet 100 mg PO PRN PRN (Reason: Sexual Activity) tamsulosin 0.4 mg capsule 0.4 mg PO DAILY Discontinued aspirin 81 mg Capsule 81 mg PO DAILY ibuprofen 200 mg Tablet 200 mg PO Q6H PRN (Reason: Pain (Scale Score 4-6)) Follow up/Referrals: Rosario Hull MD [Primary Care Provider] - Diet/Activity/Treatments Diet: Diet as Tolerated Activity: Ambulate multiple times a day. Use a cane or walker as needed. Full weight on leg. Cold/Heat Therapy: Use ice multiple times a day. Skin/Wound/Dressing Care Skin care: Leave dressing on. Do not soak in a bath or hot tub Dressing: May shower. Leave dressing in place until follow up in office. No bathing or otherwise soaking incision. Call the office if the dressing becomes saturated inside. Visit Report/Discharge Packet Instructions: DI for Hip Replacement Stand Alone Forms: Patient Portal/API, Surgery Discharge Discharge Data Primary Care Provider: Rosario Hull Attending Provider: Gloria Singh
--- NOTE | 2024-05-13 08:15 | CM.DANOTE ---
Initial DCP Assessment Visit Note Reviewed EMR and team rounds for pt's medical status and updates. Met with pt's to introduce self and role, as pt was sleeping at the time of this visit. Pt lives modified independently in his own home with his on [address]. She will be taking care of pt postoperatively, and has already set-up OP PT for home recovery needs. She will also transport pt back home later this morning after he works with PT. She denies any CM assistance/resource needs at this time. Payor: COLIN Attending: Dr. Gloria Singh Pt is a 63 year-old M post-op day 1 from a R-total hip arthroplasty surgery. He has a hx of worsening/severe R-hip pain that has significantly limited his mobility, and he depends on his to assist him with getting his shoes and socks on in the morning. He does have 6-7 stairs to navigate when he goes home, however his states that they can manage. DCP will continue to follow for any further evolving d/c needs. Discharge Planning/Care Management CM Discharge Assessment Start: 05/13/24 08:10 Freq: Status: Active Protocol: Document 05/13/24 08:10 DPL (Rec: 05/13/24 08:15 DPL [id number]) Discharge Planning Assessment Assigned Section Hand Helper MARSHALL Sanchez Advance Directives? Yes Advance Directives on File No History Provided By Family Member,Medical Record Expected Length of Stay 1 Has Patient been admitted in last 30 No days? Prior Living Arrangements House Household Members spouse Type of transporation used prior to Drives own vehicle admit Independent with ADL's No: modified independent with walker/cane Is patient alert and oriented? No: Pt was found to be sleeping at time of SHOES HAND SEWER visit. Needs Assistance With Home Chores / Shopping Comment Need's 's assistance to get his shoes and socks on. Caregiver for Another No Discharge Plan Home Community Services Physical Therapy Transportation Arrangement Spouse Referrals Initiated None needed Whiteboard Updated in Patient Room with Yes name and ext. # of Section Hand Helper Review Status In Process Please Provide Date Initial DC 05/13/24 Assessment Was Performed Pre-Anesthesia Assessment Start: 04/29/24 08:38 Freq: Status: Active Protocol: Document 04/29/24 08:38 LB (Rec: 04/29/24 09:41 LB [id number]) Pre-Anesthesia Assessment PAC Comment 04/29/24 Phone assessment. Pt has preop surgeon appt . Preferred Name Vince Patient Information Reviewed Via Phone Assessment Assessment Completed With Patient Comment No current results. Preop appt 05/04/24. Primary Care Provider Ladan Seen Specialist in Last 12 Months Yes Specialist Seen Motion Picture Set Up Worker,Orthopedist Primary Language Monegasque Preferred Language Monegasque Height 182.88 cm Weight 96.162 kg Body Mass Index (BMI) 28.7 Hearing Ability Normal Visual Assist Glasses Dentition Type Teeth, Natural Present Barriers to Learning None Other Aids No Comment Reading glasses. Hx Anesthesia Reactions No Hx Family Anesthesia Reaction No Hx Malignant Hyperthermia No Hx Blood Transfusions No Anesthesia Review Requested Yes: Hx Afib/PE. Utility Division Project Manager No alcohol intake current alcohol intake frequency a few times a week Smoking Status Current every day smoker Tobacco type cigarettes Substance Use Type [#R] does not use Pain Present Pain Reported Comment Right hip. Musculoskeletal Symptoms Back Pain,Difficulty Walking, Joint Pain History of Falling (Recent or History of No ) Patient is completely paralyzed or No completely immobile Mental Status Oriented to own ability Comment Will bring walker. Is patient on oxygen? No Does patient have CARTER/SOB No Hx Sleep Apnea No Currently Taking a Beta Chavez No Can You Climb a Flight of Stairs Without Yes SOB Hx Chest Pain Yes: with Afib/PE. Hx SOB Yes: with Afib/PE. Anti-Coagulant Therapy Yes: Aspirin 81mg daily - will check with surgeon when to hold at appt. Has a Motion Picture Set Up Worker Yes: Dr Muñoz - [facility]. Cardiac Testing Yes: Echo 12/21/21 at [facility]. Hx Pacemaker/ICD No Dysphagia No Gastrointestinal Symptoms Constipation Bladder Pattern Frequency,Nocturia Urinary Catheter Present No Hx Urinary Self Catheterization No Diabetes No Hx Drug Resistant Organism No Presence of External or Internal Medical Yes: Left hip. Devices Have you had any close contact with No someone diagnosed with COVID-19? Are you experiencing any of these Cough symptoms? Received a COVID vaccine? Yes Comment Denies covid last 2 months. Advised to take a covid test. Marital Status Lives With spouse Current Living Arrangements House Number of Stairs To Enter/Railing? Split level -7 stairs to living area with railing. Support System Spouse Does the Patient Have Assistance After Yes Surgery Patient Discharge Plan Description Return Home Feels Safe in Current Environment Yes Do you have a plan to hurt yourself or No Plan others? Do You Have Any Spiritual Beliefs That No May Affect Your HC Choices? Do You Have Any Cultural Practices That No May Affect Your HC Choices? Emergency Contact Name Kelly () Emergency Contact (cell) (home) Advance Directives? Yes Advance Directives on File No Requested Patient Bring Advanced Yes Directives DOS Power of Manager Meat No Power of Manager Meat Name Nahed Ramirez Power of Manager Meat [phone] PAC Instructions Assistance for 24 hours post- op,Durable medical equipment, Medications to take/avoid, Nasal antibiotic,No ETOH/ petroleum product on skin DOS, NPO,Post-op transportation,Pre -surgical wash,Sturdy shoes/ comfortable clothes,Do not bring valuables and remove jewelry
[2024-05-13] MEDS: TAMSULOSIN 0.4 MG CAPSULE PO (08:27)
[2024-05-13] MEDS: APIXABAN 5 MG TABLET PO ×2 (08:27→21:14)
[2024-05-13] MEDS: ASPIRIN EC 81 MG TABLET PO (08:27)
[2024-05-13] MEDS: DOCUSATE 100 MG CAPSULE PO ×2 (08:27→21:14)
--- NOTE | 2024-05-13 10:00 | PT.IIE ---
Current Diagnoses Unilateral primary osteoarthritis, right hip (05/12/24) Surgery Performed Operation Date: 05/12/24 10:45 Actual Procedures p Total Hip Arthroplasty/Anterior Approach(Right) - Gloria Singh MD Surgical History (Last Reviewed 05/12/24 @ 08:59 by Grace Bejarano, RN) History of bowel resection (1992) History of vasectomy Hx of nasal septoplasty Hx of tonsillectomy Status post appendectomy (1992) Medical History (Last Reviewed 05/12/24 @ 08:58 by Grace Bejarano RN) Afib (07/2021) BPH (benign prostatic hyperplasia) DVT (deep venous thrombosis) (07/2021) History of cardioversion (07/2021) HTN (hypertension) Osteoarthritis Pulmonary embolism (07/2021) Physical Therapy Inpatient Evaluation/Re-Eval M1 PT/OT-IP Prior Functional Status Start: 05/13/24 13:21 Freq: NEEDED Status: Active Protocol: Document 05/13/24 10:00 AB (Rec: 05/13/24 13:37 AB [id number]) Medical Review Prior Functional Status Medical History Reviewed Yes Communication able to make needs known Mobility and Gait pt stated that he was independent with all mobilities and ambulation without AD Activities of Daily Living and IADL's per OT note: Pt had difficulty with socks and shoes and pain during IADl and IADL needs. Social History Household Members spouse Living Arrangements House Number of Floors (Floors) Two Floors Number of Stairs To Enter/Railing? pt stays on main level of the house 7 steps L rail ascending to enter Home Environment Standard Height Toilet,Walk in Shower Home Equipment Front Wheel Walker,Straight Cane,Raised Toilet Seat Without Armrests,Hand Held Shower,Grab Bars In Shower M2 PT-IP Current Condition Start: 05/13/24 13:21 Freq: NEEDED Status: Active Protocol: Document 05/13/24 10:00 AB (Rec: 05/13/24 13:37 AB [id number]) Physical Therapy Current Condition Current Condition Evaluation Date 05/13/24 Treatment Diagnosis s/p R SEUN anterior; difficulty in walking Onset Date 05/12/24 M3 PT-IP Subjective Start: 05/13/24 13:21 Freq: NEEDED Status: Active Protocol: Document 05/13/24 10:00 AB (Rec: 05/13/24 13:37 AB [id number]) Subjective Physical Therapy Visit Type Type Initial Evaluation Visit Start Time 10:00 Visit Stop Time 10:30 Number of CLIN NURSE SPEC Visits 0 Physical Therapy Visit Comments Patient Comments agreeable to do PT Therapy Pain Assessment Pain When Pain Assessed During Mobility Pain Present Pain Present Pain Reported Location Right Hip Intensity 3 Scale Used Numeric (0 - 10) Pain Management Techniques Apply Cold,Modification of Treatment,Re-positioning, Timing of Activity with Medications M4 PT-IP Mobility and Gait Start: 05/13/24 13:21 Freq: NEEDED Status: Active Protocol: Document 05/13/24 10:00 AB (Rec: 05/13/24 13:37 [id number]) PT-Transfer Assessment Sit to and From Stand Sit to and from Stand Contact Guard Assistance,1 Person Assistance,Use of Upper Extremities Equipment Transfer Assistive Device Gait Belt,Front Wheeled Walker Orthotic/Prosthetic Devices or Brace: No Comments Mobility Comments pt sitting on the chair. stated that he wants to move and all he does is sit or lay in bed. pt is anxious. agreed to do PT. nurse in room with pt and stated that pt's BP is 93/44. informed pt that PT will monitor BP during PT session for safety and pt agreed. obtained PLOF and home set up. reviewed hip precautions with pt and pt only recalled 04/23. educated pt regarding hip precautions again. spouse arrived. BP checked sittin/48, rechecked: 81/49. pt wanting to stay on the chair but wants to at least stand up. completed sit to stand CGA. pt stood up using FWW for support CGA for ~ 15 sec. instructed to sit back down. c/o slight lightheadedness. BP checked: 88/53. positioned pt on the chair. call light and table placed within reach. BP checked reclined on the chair: 93/55. PT-Balance Assessment Sitting Balance and Reactions Static Sitting Balance Ability Normal Dynamic Sitting Balance Ability Good Standing Balance and Reactions Static Standing Balance Ability Fair Dynamic Standing Balance Ability Fair Device Used FWW M5 PT-IP Objective Assessments Start: 05/13/24 13:21 Freq: NEEDED Status: Active Protocol: Document 05/13/24 10:00 AB (Rec: 05/13/24 13:37 [id number]) Orientation Orientation/Cognition Level of Alertness Alert Orientation Name,Place,Situation Language Function Ability Hard of Hearing Safety Awareness Decreased Safety Awareness Memory Description Short Term Impaired Gross Range of Motion Lower Extremity ROM Assessment Within Functional Limits Strength Lower Extremity Strength Assessment Right Impaired Hip 3+/5 Knee 4-/5 Coordination Assessment Gross Coordination Gross Coordination WNL Sensation Assessment Sensation Gross Sensation WNL Muscle Tone Muscle Tone WNL Yes M6 PT-IP Treatment Start: 05/13/24 13:21 Freq: NEEDED Status: Active Protocol: Document 05/13/24 10:00 AB (Rec: 05/13/24 13:37 AB [id number]) Physical Therapy Treatment Education Education Provided Precautions,Weight Bearing Status,Safety M7 PT-IP Assessment and Plan Start: 05/13/24 13:21 Freq: NEEDED Status: Active Protocol: Document 05/13/24 10:00 AB (Rec: 05/13/24 13:37 AB [id number]) PT Summary Assessment and Plan Potential Rehabilitation Potential Fair Status of Condition at Evaluation Evolving Summary Impairments Pain,ROM,Strength,Balance, Coordination,Sensation,Tone, Cognition,Bed Mobility, Transfers,Gait,Activity Tolerance Assessment Summary pt is a 63 y/o M s/p R SEUN anterior POD 1. pt has R hip anterior precautions and is WBAT. pt limitied activity this morning due to low BP: 78 /48 and 84/49 with c/o lightheadedness. pt plans to go home and spouse to assist him. will need further assessment. Goals Bed Mobility Goal Independent Transfer Goal Independent,Front Wheeled Walker Gait Goal Independent,Front Wheel Walker Gait Distance 250 Other Goals up/down 7 steps L rail ascending SBA Days to Meet Goals 5 Frequency of Treatment Frequency Of Treatment Twice a Day Treatment Plan Physical Therapy Treatment Plan Bed Mobility Training,Transfer Training,Gait Training, Therapeutic Exercise,Balance Retraining,Post Op Education, Discharge Planning,Hot or Cold Pack,Neuromuscular Re-ed, Coordination Retraining,Manual Therapy Precautions Anterior Hip Precautions No Hip Extension,No Hip External Rotation Weight Bearing Status Weight Bearing Status Weight Bear as Tolerated Allowed Weight Bearing Amount (enter % RLE WBAT or #) (%) Recommendations To Nursing Amount of Assist Needed 1 Person Assist Discharge Recommendations PT Discharge Recommendations Home with Assistance, Outpatient PT Transportation Needs at Discharge Private Vehicle,Wheelchair/ Cabulance
--- NOTE | 2024-05-13 10:32 | PC.NURSE ---
Addendum entered by Maura Moore R.N. 05/13/24 11:28: New order 1000 mL LR fluid bolus per LILIANE Diaz. Current BP 92/56. Call light in reach Bolus started. Pt resting comfortably in chair. Original Note: 0830 pt alert and oriented x4. Assisted pt to chair. BP 101/72 (83) HR 79. pt complaining of being lightheaded sitting- BP 92/71(77) HR 87. call light in reach- care continues 1010 pt up with PT BP 93/52(66) Sitting Standing 78/48 and symptomatic. 1040 BP 89/52 HR 67 pt resting in chair. LILIANE Ring called by this RN- left message. Restarted LR @ 100mL. pt alert and appropriate, and bedside. Call light in reach.
--- NOTE | 2024-05-13 10:33 | OT.IPNOTE ---
Pt having low BP, to check on pt later or when appropriate.
[2024-05-13] MEDS: LACTATED RINGERS 1,000 ML 1000 ML IV (11:31)
[2024-05-13] MEDS: LACTATED RINGERS 1,000 ML 100 ML IV ×2 (12:33→22:37)
--- NOTE | 2024-05-13 14:50 | PT.IPTN ---
Current Diagnoses Unilateral primary osteoarthritis, right hip (05/12/24) Surgery Performed Operation Date: 05/12/24 10:45 Actual Procedures p Total Hip Arthroplasty/Anterior Approach(Right) - Gloria Singh MD Physical Therapy Treatment Note M2 PT-IP Current Condition Start: 05/13/24 13:21 Freq: NEEDED Status: Active Protocol: Document 05/13/24 10:00 AB (Rec: 05/13/24 13:37 AB [id number]) Physical Therapy Current Condition Current Condition Evaluation Date 05/13/24 Treatment Diagnosis s/p R SEUN anterior; difficulty in walking Onset Date 05/12/24 M3 PT-IP Subjective Start: 05/13/24 13:21 Freq: NEEDED Status: Active Protocol: Document 05/13/24 14:50 AB (Rec: 05/13/24 17:00 AB [id number]) Subjective Physical Therapy Visit Type Type Treatment Note Visit Start Time 14:50 Visit Stop Time 15:30 Number of MECHANICAL PROCESS ENGINEER Visits 0 Physical Therapy Visit Comments Patient Comments agreeable to do PT Therapy Pain Assessment Pain When Pain Assessed At Rest Pain Present Pain Present Pain Reported Location Right Hip Intensity 6 Scale Used Numeric (0 - 10) Pain Behaviors Facial Grimacing,Guarding, Wincing Pain Management Techniques Apply Cold,Distraction, Modification of Treatment,Re- positioning,Timing of Activity with Medications M4 PT-IP Mobility and Gait Start: 05/13/24 13:21 Freq: NEEDED Status: Active Protocol: Document 05/13/24 14:50 AB (Rec: 05/13/24 17:00 AB [id number]) PT-Bed Mobility Assessment Supine to Sit Supine to Sit Standby Assistance,Bedrails Sit to Supine Sit to Supine Maximum Assistance,1 Person Assistance,Bedrails PT-Transfer Assessment Sit to and From Stand Sit to and from Stand Contact Guard Assistance,1 Person Assistance,Use of Upper Extremities Equipment Transfer Assistive Device Gait Belt,Front Wheeled Walker Orthotic/Prosthetic Devices or Brace: No Comments Mobility Comments pt supine in bed and agreeable to do PT. reviewed hip precautions with pt. BP monitored. BP in supine: 114/67. completed supine to sit SBA and cues. able to sit on EOB SBA. BP in sittin/65. pt sat on EOB for ~ 2 more minutes and BP checked again: 112/65. pt completed sit to stand CGA. maintained standing CGA using FWW for support while BP is being checked: 96/57. pt sat back on EOB and rested. agreed to stand again CGA. BP checked in standin/56. c/o slight lightheadedness but dissipated. pt maintained standing using FWW CGA for ~ 1 min and BP checked again: 96/ 56. pt ambulated in room ~ 8 ft using FWW CGA and sat on the EOB. BP checked: 92/56. assisted pt back in bed. max A for sit to supine to elevate RLE to bed. positioned pt in bed. call light and table placed within reach. c/o increase tiredness this afternoon. Gait Assessment Gait Gait Assistance Required: Contact Guard Assist Distance (Feet) 8 Able to Maintain Weight Bearing Status Yes During Gait Assistive Devices Assistive Device Gait Belt,Front Wheeled Walker Orthotic/Prosthetic Devices or Brace: No Gait Deviations General Gait Pattern Decreased Feet Clearance Factors Limiting Gait Function Factors Limiting Gait Function Decreased Activity Tolerance, Decreased Strength,Limited Range of Motion,Pain,Poor Balance,Poor Safety Awareness M5 PT-IP Objective Assessments Start: 05/13/24 13:21 Freq: NEEDED Status: Active Protocol: Document 05/13/24 10:00 AB (Rec: 05/13/24 13:37 AB [id number]) Orientation Orientation/Cognition Level of Alertness Alert Orientation Name,Place,Situation Language Function Ability Hard of Hearing Safety Awareness Decreased Safety Awareness Memory Description Short Term Impaired Gross Range of Motion Lower Extremity ROM Assessment Within Functional Limits Strength Lower Extremity Strength Assessment Right Impaired Hip 3+/5 Knee 4-/5 Coordination Assessment Gross Coordination Gross Coordination WNL Sensation Assessment Sensation Gross Sensation WNL Muscle Tone Muscle Tone WNL Yes M6 PT-IP Treatment Start: 05/13/24 13:21 Freq: NEEDED Status: Active Protocol: Document 05/13/24 14:50 AB (Rec: 05/13/24 17:00 AB [id number]) Physical Therapy Treatment Education Education Provided Precautions,Safety M7 PT-IP Assessment and Plan Start: 05/13/24 13:21 Freq: NEEDED Status: Active Protocol: Document 05/13/24 14:50 AB (Rec: 05/13/24 17:00 AB [id number]) PT Summary Assessment and Plan Potential Rehabilitation Potential Good Summary Impairments Pain,ROM,Strength,Balance, Coordination,Sensation,Tone, Cognition,Bed Mobility, Transfers,Gait,Activity Tolerance Progress Towards Goals Slow Progress due to Medical Issues,Slow Progress due to Activity Tolerance Assessment Summary pt requiring CGA with transfers and ambulation using FWW but did not tolerate much activity this afternoon with c/o increase fatigue. BP continues to be on the low side but improved from this morning. BP in standin/ 57. pt lives with spouse and plans to go home with spouse to assist him. will continue to assess progress. Goals Bed Mobility Goal Independent Transfer Goal Independent,Front Wheeled Walker Gait Goal Independent,Front Wheel Walker Gait Distance 250 Other Goals up/down 7 steps L rail ascending SBA Days to Meet Goals 5 Frequency of Treatment Frequency Of Treatment Twice a Day Treatment Plan Physical Therapy Treatment Plan Bed Mobility Training,Transfer Training,Gait Training, Therapeutic Exercise,Balance Retraining,Post Op Education, Discharge Planning,Hot or Cold Pack,Neuromuscular Re-ed, Coordination Retraining,Manual Therapy Other Recommendations and Next Treatment caregiver training and stair Focus training when appropriate Precautions Anterior Hip Precautions No Hip Extension,No Hip External Rotation Weight Bearing Status Weight Bearing Status Weight Bear as Tolerated Allowed Weight Bearing Amount (enter % RLE WBAT or #) (%) Recommendations To Nursing Amount of Assist Needed 1 Person Assist Discharge Recommendations PT Discharge Recommendations Home with Assistance, Outpatient PT Transportation Needs at Discharge Private Vehicle,Wheelchair/ Cabulance
--- NOTE | 2024-05-13 14:50 | PT.IPTN ---
Current Diagnoses Unilateral primary osteoarthritis, right hip (05/12/24) Surgery Performed Operation Date: 05/12/24 10:45 Actual Procedures p Total Hip Arthroplasty/Anterior Approach(Right) - Gloria Singh MD Physical Therapy Treatment Note M2 PT-IP Current Condition Start: 05/13/24 13:21 Freq: NEEDED Status: Active Protocol: Document 05/13/24 10:00 AB (Rec: 05/13/24 13:37 AB [id number]) Physical Therapy Current Condition Current Condition Evaluation Date 05/13/24 Treatment Diagnosis s/p R SEUN anterior; difficulty in walking Onset Date 05/12/24 M3 PT-IP Subjective Start: 05/13/24 13:21 Freq: NEEDED Status: Active Protocol: Document 05/13/24 14:50 AB (Rec: 05/13/24 17:00 AB [id number]) Subjective Physical Therapy Visit Type Type Treatment Note Visit Start Time 14:50 Visit Stop Time 15:30 Number of MANAGER MECHANICAL MAINTENANCE Visits 0 Physical Therapy Visit Comments Patient Comments agreeable to do PT Therapy Pain Assessment Pain When Pain Assessed At Rest Pain Present Pain Present Pain Reported Location Right Hip Intensity 6 Scale Used Numeric (0 - 10) Pain Behaviors Facial Grimacing,Guarding, Wincing Pain Management Techniques Apply Cold,Distraction, Modification of Treatment,Re- positioning,Timing of Activity with Medications M4 PT-IP Mobility and Gait Start: 05/13/24 13:21 Freq: NEEDED Status: Active Protocol: Document 05/13/24 14:50 AB (Rec: 05/13/24 17:00 AB [id number]) PT-Bed Mobility Assessment Supine to Sit Supine to Sit Standby Assistance,Bedrails Sit to Supine Sit to Supine Maximum Assistance,1 Person Assistance,Bedrails PT-Transfer Assessment Sit to and From Stand Sit to and from Stand Contact Guard Assistance,1 Person Assistance,Use of Upper Extremities Equipment Transfer Assistive Device Gait Belt,Front Wheeled Walker Orthotic/Prosthetic Devices or Brace: No Comments Mobility Comments pt supine in bed and agreeable to do PT. reviewed hip precautions with pt. BP monitored. BP in supine: 114/67. completed supine to sit SBA and cues. able to sit on EOB SBA. BP in sittin/65. pt sat on EOB for ~ 2 more minutes and BP checked again: 112/65. pt completed sit to stand CGA. maintained standing CGA using FWW for support while BP is being checked: 96/57. pt sat back on EOB and rested. agreed to stand again CGA. BP checked in standin/56. c/o slight lightheadedness but dissipated. pt maintained standing using FWW CGA for ~ 1 min and BP checked again: 96/ 56. pt ambulated in room ~ 8 ft using FWW CGA and sat on the EOB. BP checked: 92/56. assisted pt back in bed. max A for sit to supine to elevate RLE to bed. positioned pt in bed. call light and table placed within reach. c/o increase tiredness this afternoon. Gait Assessment Gait Gait Assistance Required: Contact Guard Assist Distance (Feet) 8 Able to Maintain Weight Bearing Status Yes During Gait Assistive Devices Assistive Device Gait Belt,Front Wheeled Walker Orthotic/Prosthetic Devices or Brace: No Gait Deviations General Gait Pattern Decreased Feet Clearance Factors Limiting Gait Function Factors Limiting Gait Function Decreased Activity Tolerance, Decreased Strength,Limited Range of Motion,Pain,Poor Balance,Poor Safety Awareness M5 PT-IP Objective Assessments Start: 05/13/24 13:21 Freq: NEEDED Status: Active Protocol: Document 05/13/24 10:00 AB (Rec: 05/13/24 13:37 AB [id number]) Orientation Orientation/Cognition Level of Alertness Alert Orientation Name,Place,Situation Language Function Ability Hard of Hearing Safety Awareness Decreased Safety Awareness Memory Description Short Term Impaired Gross Range of Motion Lower Extremity ROM Assessment Within Functional Limits Strength Lower Extremity Strength Assessment Right Impaired Hip 3+/5 Knee 4-/5 Coordination Assessment Gross Coordination Gross Coordination WNL Sensation Assessment Sensation Gross Sensation WNL Muscle Tone Muscle Tone WNL Yes M6 PT-IP Treatment Start: 05/13/24 13:21 Freq: NEEDED Status: Active Protocol: Document 05/13/24 14:50 AB (Rec: 05/13/24 17:00 AB [id number]) Physical Therapy Treatment Education Education Provided Precautions,Safety M7 PT-IP Assessment and Plan Start: 05/13/24 13:21 Freq: NEEDED Status: Active Protocol: Document 05/13/24 14:50 AB (Rec: 05/13/24 17:00 AB [id number]) PT Summary Assessment and Plan Potential Rehabilitation Potential Good Summary Impairments Pain,ROM,Strength,Balance, Coordination,Sensation,Tone, Cognition,Bed Mobility, Transfers,Gait,Activity Tolerance Progress Towards Goals Slow Progress due to Medical Issues,Slow Progress due to Activity Tolerance Assessment Summary pt requiring CGA with transfers and ambulation using FWW but did not tolerate much activity this afternoon with c/o increase fatigue. BP continues to be on the low side but improved from this morning. BP in [place]: 96/ 57. pt lives with spouse and plans to go home with spouse to assist him. will continue to assess progress. Goals Bed Mobility Goal Independent Transfer Goal Independent,Front Wheeled Walker Gait Goal Independent,Front Wheel Walker Gait Distance 250 Other Goals up/down 7 steps L rail ascending SBA Days to Meet Goals 5 Frequency of Treatment Frequency Of Treatment Twice a Day Treatment Plan Physical Therapy Treatment Plan Bed Mobility Training,Transfer Training,Gait Training, Therapeutic Exercise,Balance Retraining,Post Op Education, Discharge Planning,Hot or Cold Pack,Neuromuscular Re-ed, Coordination Retraining,Manual Therapy Precautions Anterior Hip Precautions No Hip Extension,No Hip External Rotation Weight Bearing Status Weight Bearing Status Weight Bear as Tolerated Allowed Weight Bearing Amount (enter % RLE WBAT or #) (%) Recommendations To Nursing Amount of Assist Needed 1 Person Assist Discharge Recommendations PT Discharge Recommendations Home with Assistance, Outpatient PT Transportation Needs at Discharge Private Vehicle,Wheelchair/ Cabulance
--- NOTE | 2024-05-13 15:43 | PM.PNPO.1 ---
Subjective Subjective Date Patient Seen: 05/13/24 Time Patient Seen: 07:30 Interval history: Vince was found this morning sitting in bed and feeling well. Says he just has not ache over his right hip. He has not gotten out of bed to ambulate he had is waiting for nursing assistance. He has been able to urinate without any complications. He is anxious to return home today Patient's pain is controlled with oral medication. ?Pain is localized to surgical site. ?Patient declines any new numbness or tingling at the surgical extremity. ?Patient denies any shortness of breath, dizziness, light-headedness, nausea, vomiting, fever or chills. Exam Vital Signs (past 8 hours): - 05/13/24 08:30 05/13/24 08:59 05/13/24 10:10 Temperature 96.9 F L Pulse Rate 77 Pulse Rate [Orthostatic Sitting] 87 85 Pulse Rate [Orthostatic Standing] 79 83 Respiratory Rate 20 Blood Pressure 111/77 Blood Pressure [Orthostatic Sitting] 92/71 93/52 L Blood Pressure [Orthostatic Standing] 101/72 78/48 L Pulse Oximetry 98 Oxygen Flow Rate 0 05/13/24 11:20 05/13/24 14:29 Temperature Pulse Rate Pulse Rate [Orthostatic Sitting] Pulse Rate [Orthostatic Standing] Respiratory Rate 18 Blood Pressure 92/56 L 118/60 Blood Pressure [Orthostatic Sitting] Blood Pressure [Orthostatic Standing] Pulse Oximetry Oxygen Flow Rate Oxygen Delivery Method Room Air Oxygen Flow Rate 0 Narrative Exam Narrative: 5/5 strength in hip flexors, quadriceps, hamstrings, DF, PF, EHL bilaterally. Sensation to light touch intact throughout BLE. Calves soft, compressible, nontender. Dressing placed intraoperatively CDI. Objective Labs 05/13/24 05:30 Labs: Laboratory Results - last 24 hr 05/13/24 05:30 Hgb 12.0 L Hct 35.4 L PFSH Medical History Pulmonary embolism (07/2021) BPH (benign prostatic hyperplasia) HTN (hypertension) History of cardioversion (07/2021) DVT (deep venous thrombosis) (07/2021) Afib (07/2021) Osteoarthritis Surgical History History of bowel resection (1992) Hx of nasal septoplasty Hx of tonsillectomy History of vasectomy Status post appendectomy (1992) Social History household members: spouse Smoking Status: Current every day smoker alcohol intake: current Assessment & Plan Post-op Postoperative Procedures: Procedures Operation Date: 05/12/24 10:45 Actual Procedure Side Surgeon p Total Hip Arthroplasty/Anterior Approach Right Gloria Singh MD Postoperative day: 1 Postoperative status: doing well Postoperative status narrative: Plan was to discharge home today pending PT approval. During PT patient became orthostatic hypotensive with blood pressure low of 78/42. He was symptomatic feeling dizzy and lightheaded. Held DC and continued to observe throughout the day. Continued with an IV drip with lactated Ringer's and gave a 1000 mL bolus today. Worked with PT in the afternoon but was still dizzy and lightheaded when working with PT. Blood pressure came up to 118/60. Patient is motivated to go home but recommend another night in the hospital for observation due to significant past medical history surgical complications with DVT/PE from another surgery. Postoperative plan: routine post-op care and ambulate Postoperative plan narrative: Cancel discharge today. Will discharge to home when medically stable. Repeat H&H in the morning. Work with PT for ambulation while inpatient. Anterior Hip Pre-cautions. Ambulate and weight bear as tolerated with assistive devices. Due to patient's history of DVTs, has been prescribed Eliquis 5mg bid for 35 days. Baseline pain relief with acetaminophen 500mg every 4 hours as needed. Patient has been prescribed oxycodone 5 mg every 4 hours as needed for breakthrough pain. Initiate physical therapy in the next 5-10 days. Keep dressing clean and dry. Keep dressing on until first office visit. If dressing becomes dirty or disrupted, replace with appropriate sized dressing. Follow up in clinic in 2 weeks for wound check. Contact clinic if there are any questions or concerns. Time Spent With Patient Time with patient: 15-24 minutes Quality VTE Deep Vein Thrombosis/Pulmonary Embolism Present on Admission: No
[2024-05-14] MEDS: OXYCODONE IR 5 MG TABLET PO ×4 (02:45→14:29)
[2024-05-14 06:56] LABS: Hematocrit 33.6 % (41-53); Hemoglobin 11.4 g/dL (13.5-17.5)
[2024-05-14] MEDS: ONDANSETRON 4 MG ODT PO (07:43)
--- NOTE | 2024-05-14 08:16 | PT.IPTN ---
Current Diagnoses Unilateral primary osteoarthritis, right hip (05/12/24) Surgery Performed Operation Date: 05/12/24 10:45 Actual Procedures p Total Hip Arthroplasty/Anterior Approach(Right) - Gloria Singh MD Physical Therapy Treatment Note M2 PT-IP Current Condition Start: 05/13/24 13:21 Freq: NEEDED Status: Active Protocol: Document 05/14/24 07:41 SP (Rec: 05/14/24 10:51 SP [id number]) Physical Therapy Current Condition Current Condition Evaluation Date 05/13/24 Treatment Diagnosis s/p R SEUN anterior; difficulty in walking Onset Date 05/12/24 M3 PT-IP Subjective Start: 05/13/24 13:21 Freq: NEEDED Status: Active Protocol: Document 05/14/24 07:41 SP (Rec: 05/14/24 10:51 SP [id number]) Subjective Physical Therapy Visit Type Type Treatment Note Visit Start Time 07:41 Visit Stop Time 08:16 Notes in room, assisted with physical CGA during mobiltiy, CGT. Number of SCOURING TRAIN OPERATOR Visits 1 Physical Therapy Visit Comments Patient Comments agreeable to do PT Therapy Pain Assessment Pain When Pain Assessed During Mobility Pain Present Pain Present Pain Reported Location Right Hip Intensity 4 Scale Used with mobility Description With Movement Pain Behaviors Facial Grimacing,Moaning Pain Management Techniques Apply Cold,Distraction, Modification of Treatment,Re- positioning,Timing of Activity with Medications M4 PT-IP Mobility and Gait Start: 05/13/24 13:21 Freq: NEEDED Status: Active Protocol: Document 05/14/24 07:41 SP (Rec: 05/14/24 10:51 SP [id number]) PT-Bed Mobility Assessment Supine to Sit Supine to Sit Minimal Assistance Scooting Scooting to Edge of Bed Minimal Assistance PT-Transfer Assessment Sit to and From Stand Sit to and from Stand Contact Guard Assistance,1 Person Assistance,Use of Upper Extremities Equipment Transfer Assistive Device Gait Belt,Front Wheeled Walker Orthotic/Prosthetic Devices or Brace: No Transfers Transfer Destination Chair,Wheelchair Transfer Technique pt ambulated with FWW Transfer Ability Level of Assist Standby Assistance,Contact Guard Assistance,1 Person Assistance,Use of Upper Extremities Comments Mobility Comments Pt just medication at arrival, noted pain but willing to work withPTA. Orthostatics sup 117/69 HR 69, seated 111/68 HR 83, Standing 103/68 HR 91 little lightheaded but stated ok to continue. Min A for RLE support to EOB, STS CGA heavy BUE on bed/FWW. Gait to hallway w/c CGA step to L semi tandem, moderate UE WB on FWW , improved TKE with progression, 15 ft. Wheeled to stairs: ascend/descend L HR and SPC in RUE, cues by SCOURING TRAIN OPERATOR then for step to lead LLE and descend RLE SPC advance step. Able to keep RLE TKE but reports painful /10, CGA- 5% A via support. Pt requested walk back to room w/ c follow, reports little more light headed but declined sitting 2 brief stand rests, approx 100 ft total. Returned to room chair. BP 90/50 with reports continued pain, reclined back in chair symptomatic lightheaded, nursing notified and took over care, recheck BP 86/45. in room when left. SCOURING TRAIN OPERATOR stated pt ok to return home when pain and BP medically stable with . Outpt PT set up for Saturday. Gait Assessment Gait Gait Assistance Required: Contact Guard Assist,1 Person Assist Distance (Feet) 100 Able to Maintain Weight Bearing Status Yes During Gait Assistive Devices Assistive Device Gait Belt,Front Wheeled Walker Orthotic/Prosthetic Devices or Brace: No Gait Deviations General Gait Pattern Decreased Stride Length, Decreased Feet Clearance, Narrow Based Gait,Step-to Gait Factors Limiting Gait Function Factors Limiting Gait Function Decreased Activity Tolerance, Decreased Strength,Limited Range of Motion,Pain,Poor Balance,Poor Safety Awareness Stair Climbing Assessment Evaluation Level of Assist On Stairs Contact Guard Assistance, Minimal Assistance,1 Person Assistance Devices Stair Climbing Assistive Devices Straight Cane,Left Railing Technique/Endurance Stair Climbing Direction Ascend and Descend Stair Climbing Technique Step to Step Number of Steps Climbed 3 Stair Climbing Set # Repetitions (reps) 1 Comments Stair Climbing Comments Completed 3 stairs but has 7 at home, CG- Min A, cued proper sequencing SPC in advanced step. PT-Balance Assessment Sitting Balance and Reactions Static Sitting Balance Ability Normal Dynamic Sitting Balance Ability Good Standing Balance and Reactions Static Standing Balance Ability Fair Dynamic Standing Balance Ability Fair Device Used FWW M5 PT-IP Objective Assessments Start: 05/13/24 13:21 Freq: NEEDED Status: Active Protocol: Document 05/13/24 10:00 AB (Rec: 05/13/24 13:37 AB [id number]) Orientation Orientation/Cognition Level of Alertness Alert Orientation Name,Place,Situation Language Function Ability Hard of Hearing Safety Awareness Decreased Safety Awareness Memory Description Short Term Impaired Gross Range of Motion Lower Extremity ROM Assessment Within Functional Limits Strength Lower Extremity Strength Assessment Right Impaired Hip 3+/5 Knee 4-/5 Coordination Assessment Gross Coordination Gross Coordination WNL Sensation Assessment Sensation Gross Sensation WNL Muscle Tone Muscle Tone WNL Yes M6 PT-IP Treatment Start: 05/13/24 13:21 Freq: NEEDED Status: Active Protocol: Document 05/14/24 07:41 SP (Rec: 05/14/24 10:51 SP [id number]) Physical Therapy Treatment Education Education Provided Precautions,Safety M7 PT-IP Assessment and Plan Start: 05/13/24 13:21 Freq: NEEDED Status: Active Protocol: Document 05/14/24 07:41 SP (Rec: 05/14/24 10:51 SP [id number]) PT Summary Assessment and Plan Potential Rehabilitation Potential Good Summary Impairments Pain,ROM,Strength,Balance, Coordination,Sensation,Tone, Cognition,Bed Mobility, Transfers,Gait,Activity Tolerance Progress Towards Goals Slow Progress due to Pain,Slow Progress due to Medical Issues,Slow Progress due to Activity Tolerance Assessment Summary Pt Min A for RLE support bed mobility sup>sit>scoot EOB, STS and gait CGA. Heavy BUE WB on FWW semitandem gait upto 100f t, completed 3 stairs vs 7 has home due to pain and decreased strength/endurance. Orthostatic hypotension symptomatic during mobility symptomatic. REcommending home / with support when medically stable hypotension 117/69 supine rested, BP 90/50 end gait and BP 86/45 rested sitting. Goals Bed Mobility Goal Independent Transfer Goal Independent,Front Wheeled Walker Gait Goal Independent,Front Wheel Walker Gait Distance 250 Other Goals up/down 7 steps L rail ascending SBA Days to Meet Goals 5 Frequency of Treatment Frequency Of Treatment Twice a Day Treatment Plan Physical Therapy Treatment Plan Bed Mobility Training,Transfer Training,Gait Training, Therapeutic Exercise,Balance Retraining,Post Op Education, Discharge Planning,Hot or Cold Pack,Neuromuscular Re-ed, Coordination Retraining,Manual Therapy Other Recommendations and Next Treatment check orthostatics, further Focus distance gait, stairs 7 L HR/ SPC in RUE, only completed 3 today. Precautions Anterior Hip Precautions No Hip Extension,No Hip External Rotation Other Precautions No excessive hip extension during mobility. Weight Bearing Status Weight Bearing Status Weight Bear as Tolerated Allowed Weight Bearing Amount (enter % RLE WBAT or #) (%) Recommendations To Nursing Amount of Assist Needed 1 Person Assist Discharge Recommendations PT Discharge Recommendations Home with Assistance,Home with 24/ Assist Available, Outpatient PT Transportation Needs at Discharge Private Vehicle
[2024-05-14] MEDS: APIXABAN 5 MG TABLET PO (08:49)
[2024-05-14] MEDS: DOCUSATE 100 MG CAPSULE PO (08:49)
--- NOTE | 2024-05-14 09:00 | OT.IP.TRT ---
Current Diagnoses Unilateral primary osteoarthritis, right hip (05/12/24) Surgery Performed Operation Date: 05/12/24 10:45 Actual Procedures p Total Hip Arthroplasty/Anterior Approach(Right) - Gloria Singh MD Occupational Therapy Treatment Note M2 OT-IP Current Condition Start: 05/12/24 16:26 Freq: Status: Active Protocol: Document 05/12/24 16:26 [facility] (Rec: 05/12/24 16:36 [facility] [id number]) Occupational Therapy Current Condition Current Condition Evaluation Date 05/12/24 Treatment Diagnosis S/P R SEUN Anterior approach Diagnosis Onset Date 05/12/24 Post Operative Precautions Anterior Hip Precautions No Hip Extension,No Hip External Rotation M3 OT- IP Subjective and Pain Start: 05/12/24 16:26 Freq: Status: Active Protocol: Document 05/14/24 09:28 [facility] (Rec: 05/14/24 09:33 [facility] [id number]) OT- Subjective Occupational Therapy Visit Type Type Treatment Note Visit Start Time 09:00 Visit Stop Time 09:25 Occupational Therapy Visit Comments Patient Comments Pt just relaxing in bed as having low BP after PT earlier . Patient/Caregiver Goals TO go home. OT Pain Assessment Pain When Pain Assessed During Mobility Pain Present Pain Present Pain Reported Location Right Hip Pain Behaviors Facial Grimacing,Holding Area M4 OT- IP ADL's Start: 05/12/24 16:26 Freq: Status: Active Protocol: Document 05/14/24 09:28 [facility] (Rec: 05/14/24 09:33 [facility] [id number]) OT ADL-Dressing Comments OT Dressing Comments PA in the room and okayed for pt to has compression stockings. Able to go over techniques for how to nolberto/ doff the stocking and will need to have his assist for the RLE. OT ADL-Bathing Comments OT Bathing Comments Pt agreed best to have a shower chair just in case pt has low BP while showering. M5 OT- IP IADL's Start: 05/12/24 16:26 Freq: Status: Active Protocol: Document 05/12/24 16:26 [facility] (Rec: 05/12/24 16:36 [facility] [id number]) OT-Instrumental Activities of Daily Living Deficits IADL Deficits Identified Deficits Home Safety Awareness Awareness of Need for Assistance at Home Good Awareness Ability to Problem Solve Emergency Able to Problem Solve Situations Meal Preparation Meal Preparation Caregiver Provides Assist Contour Sander Contour Sander Caregiver Provides Assist M6 OT- IP Functional Cognition Start: 05/12/24 16:26 Freq: Status: Active Protocol: Document 05/14/24 09:28 [facility] (Rec: 05/14/24 09:33 [facility] [id number]) Cognitive Factors Limiting Selfcare Function Cognitive Comments Cognitive Assessment Comments Pt intact and able to recall his anterior precautions. OT- Balance Assessment Sitting Balance and Reactions Static Sitting Balance Ability Normal Dynamic Sitting Balance Ability Good Standing Balance and Reactions Static Standing Balance Ability Good M8 OT- IP Objective Assessments Start: 05/12/24 16:26 Freq: Status: Active Protocol: Document 05/12/24 16:26 [facility] (Rec: 05/12/24 16:36 [facility] [id number]) OT Gross Range of Motion Upper Extremity Range of Motion Assessment Within Functional Limits OT Strength Upper Extremity Strength Assessment Within Functional Limits M9 OT- IP Assessment and Plan Start: 05/12/24 16:26 Freq: Status: Active Protocol: Document 05/14/24 09:28 [facility] (Rec: 05/14/24 09:33 [facility] [id number]) OT Summary Assessment and Plan Potential Rehabilitation Potential Excellent Analytic Complexity at Evaluation Low Summary OT Impairments Pain,Balance,Functional Mobility,Dressing,Toileting, Bathing,Toilet Transfers, Shower Transfers,Activity Tolerance Progress Towards Goals Progressing Toward Goals,Slow Progress due to Medical Issues Assessment Summary Able to go over leg exercises for pt to do in bed with use of gait belt to assist. Pt still having low BP after being up. Pt to go home when medically stable. Goals Dressing Goal Independent Toileting Goal Independent Bathing Goal Standby Assistance Toilet Transfer Goal Independent Shower Transfer Goal Independent Days to Meet Goals 4 Treatment Plan OT Treatment Plan ADL Training,Functional Mobility,Patient/Family Education,Discharge Planning Other Treatment Recommendations and Next Standign ADL's Treatment Focus Discharge Recommendations OT Discharge Recommendations Home with Assistance, Outpatient PT Home Equipment Needs Shower chair Transportation Needs at Discharge Private Vehicle
[2024-05-14] MEDS: ACETAMINOPHEN 325 MG TABLET 650 MG PO (09:02)
[2024-05-14] MEDS: polyethylene glycoL 3350 17 GM POWD.PACK PO (09:02)
--- NOTE | 2024-05-14 09:18 | P.DS_ITS ---
History of Present Illness History of Present Illness Chief complaint: RT SEUN *OPB* Narrative: Vince is a pleasant 63-year-old male who is postop day #2 s/p right anterior total hip arthroplasty by Dr. Singh. This morning he reports he is doing well overall, he wanted to go home yesterday but was unable to due to orthostatic hypotension while working with PT. He is having a lot of pain still but has been trying to not take too much Oxycodone in order to prevent his blood pressure from dropping again. States he lives at with his who is willing and able to aid in his postop recovery, he has walker and postop outpatient physical therapy appointment scheduled as well. He is urinating well without issue. He does have a history of DVT after prior surgery and so he will be maintained on Eliquis BID for DVT prophylaxis after this surgery. He would like to go home today if possible. Denies fever, chills, chest pain, SOB, nausea, vomiting. Operative Date/Time/Diagnoses Date of procedure: 05/12/24 Time of procedure: 11:00 Pre-op diagnosis: right hip AVN, OA Post-op diagnosis: same Procedure & Clinicians Procedure: Right total hip arthroplasty anterior approach Same procedure as scheduled: Yes Indications: The patient has had progressively worsening right hip pain with radiographic changes consistent with arthritis. Non-operative management has failed and the patient has requested total hip replacement. The risks, benefits and alternatives to surgery were discussed with the patient prior to proceeding. Risks discussed included, but were not limited to, failure to relieve pain, leg length discrepancy, dislocation, stiffness, infection, nerve damage, deep venous thrombosis, pulmonary embolism, stroke, coma, heart attack, permanent paralysis and , as well as the potential need for eventual revision of the prosthetic. Surgeon: Gloria Singh Fountain Operator: Naomi Murillo Anesthesia Type: General and Spinal Discharge Providers Provider Discharge Date: 05/14/24 Primary care physician: Rosario Hull MD Consults: 04/29/24 09:41 Consult to Anesthesiology Routine Comment: Consulting Provider: Anesthesiologist Reason for consultation: Afib/PE history. 05/12/24 06:00 Consult to Anesthesiology Routine Comment: Consulting Provider: Anesthesiologist Reason for consultation: Regional block for post operative pain control Has provider been notified: No 05/12/24 15:03 Consult to Discharge Planning Routine Comment: Consult to Occupational Therapy Evaluate & Treat Comment: Physician Instructions: Evaluate and treat Consult to Physical Therapy Evaluate & Treat Comment: Physician Instructions: post op SEUN protocol Discharge provider: Charito Hernandez PA-C Summary Hospital Course Discharge Diagnosis: s/p R SEUN Hospital Course: Hospital course complicated by orthostatic hypotension on postop day #1 Exam Vital Signs (past 8 hours): Oxygen Delivery Method Room Air Oxygen Flow Rate 0 Narrative Exam Narrative: Patient lying comfortably in bed during our interview today. No acute distress. AOx3. Grossly normal alignment of the right lower extremity with moderate swelling in the right thigh, no calf or ankle swelling. Very tender to palpation of the right thigh. 5/5 strength with DF, PF, EHL bilaterally. Gross sensation intact throughout bilateral lower extremities. Calves soft and non-tender bilaterally. SCDs are on and functioning. Brisk capillary refill, pulses intact. Post-surgical Aquacel dressing clean, dry and intact over the right hip without drainage. Objective Labs 05/14/24 06:20 Labs: Laboratory Results - last 24 hr 05/14/24 06:20 Hgb 11.4 L Hct 33.6 L PFSH Medical History Pulmonary embolism (07/2021) BPH (benign prostatic hyperplasia) HTN (hypertension) History of cardioversion (07/2021) DVT (deep venous thrombosis) (07/2021) Afib (07/2021) Osteoarthritis Surgical History History of bowel resection (1992) Hx of nasal septoplasty Hx of tonsillectomy History of vasectomy Status post appendectomy (1992) Social History household members: spouse Smoking Status: Current every day smoker alcohol intake: current Discharge Assessment & Plan Assessment and Plan Assessment: Stable status post right total hip arthroplasty Plan of Treatment: 1) Plan to discharge to home today with pending PT evaluation/resolution of orthostatic hypotension. If still hypotensive and having poor pain control w/ ambulation later in the day may need to stay one more night. 2) Continue multimodal pain management with ice to the hip for additional pain control. Patient reports he is postop pain medication at home already. 3) Eliquis 5mg PO BID for postop DVT prophylaxis due to history of prior DVT. 4) Start outpatient physical therapy to work on range of motion and mobility 5) Keep dressing intact, clean, dry until 2 week postop appointment. No soaking the incision site in pools or tubs. No topical ointments or creams to the incision site. 6) Follow up at [facility] orthopedics in 2 weeks for a postop appointment and wound check. All of the patients questions were answered, he demonstrates understanding and is in agreement with the plan. Call our office if any questions or concerns arise. Discharge Plan Discharge Plan Patient Disposition: Home Discharge orders & Medications Discharge Orders: Discharge (Order); Ordered 05/13/24 Ordered By: Sid Diaz Prescriptions: New Eliquis 5 mg Tablet 5 mg PO BID Qty: 70 0RF Continued sildenafil 100 mg tablet 100 mg PO PRN PRN (Reason: Sexual Activity) tamsulosin 0.4 mg capsule 0.4 mg PO DAILY Discontinued aspirin 81 mg Capsule 81 mg PO DAILY ibuprofen 200 mg Tablet 200 mg PO Q6H PRN (Reason: Pain (Scale Score 4-6)) Follow up/Referrals: Sid Diaz PA-C [[employer]] - 05/22/24 11:00 am (Appt:05/22 @ 11:00 with Gaby @ [facility] [employer] ) Rosario Hull MD [Primary Care Provider] - Diet/Activity/Treatments Diet: Diet as Tolerated Activity: Ambulate multiple times a day. Use a cane or walker as needed. Full weight on leg. Cold/Heat Therapy: Use ice multiple times a day. Skin/Wound/Dressing Care Skin care: Leave dressing on. Do not soak in a bath or hot tub Dressing: May shower. Leave dressing in place until follow up in office. No bathing or otherwise soaking incision. Call the office if the dressing becomes saturated inside. Visit Report/Discharge Packet Instructions: DI for Hip Replacement Stand Alone Forms: Patient Portal/API, Surgery Discharge Discharge Data Primary Care Provider: Rosario Hull Attending Provider: Gloria Singh VTE Deep Vein Thrombosis/Pulmonary Embolism Present on Admission: No
[2024-05-14 10:12] VITALS: BP 112/69; PULSE 88; RESP 20; O2SAT 95
--- NOTE | 2024-05-14 10:47 | PC.NURSE ---
Day shift: Ok to not give Flomax this AM due to low BP. LILIANE Cabezas aware and is ok with the hold.
--- NOTE | 2024-05-14 16:23 | PC.NURSE ---
Day Shift: Patient discharged home with via private vehicle at 16:15 by wheelchair by Bonnie BARGER & Sia RN, headed to [place], patient has all personal belongings, paperwork signed and discharge instructions given.
== END 2024-05-14 16:10 | disposition home or self-care (01) ==
LOC: OR 08:34 → AC 08:35
PROVIDERS: Physician Assistant; Family Provider Family Medicine; PCP Family Medicine; Referring Provider Nurse Practitioner Family; Visit Provider Orthopaedic Surgery
PROC: (CPT 27130; principal; 2024-05-12 10:45)
DX: M16.11 Unilateral primary osteoarthritis, right hip (principal); M87.851 Other osteonecrosis, right femur; I95.1 Orthostatic hypotension; N40.0 Benign prostatic hyperplasia without lower urinary tract symptoms; F17.210 Nicotine dependence, cigarettes, uncomplicated; Z86.718 Personal history of other venous thrombosis and embolism; Z86.711 Personal history of pulmonary embolism; Z96.642 Presence of left artificial hip joint
CPT/HCPCS: 27130; 36415; 73502; 73503; 76000; 85014; 85018; 97116; 97162; 97165; 97530; 97535; C1776; C1713; J0666; J0690; J2250; J2704; J3010

== ENCOUNTER 2024-09-02 07:45 | Emergency (ER) | payer OTHER, SELFPAY ==
[2024-05-12 08:50] VITALS: BMI 28.2
[2024-09-02] VITALS (10 sets, daily range): BP systolic 128–169; BP diastolic 59–89; PULSE 52–68; RESP 14–26; TEMP 36.4; O2SAT 96–99; BMI 27.1
--- NOTE | 2024-09-02 07:56 | ED.ABDPAIN ---
HPI - Abdominal Pain General Chief Complaint: Abdominal Pain Stated Complaint: Lower stomach pain Time Seen by Provider: 09/02/24 07:55 Source: patient, RN notes reviewed and old records reviewed Mode of arrival: Ambulatory Limitations: no limitations History of Present Illness HPI narrative: 63-year-old male history of BPH, history of PE after hip replacement had also resulted in cardiac arrhythmias is currently only on Flomax and aspirin daily but was fully anticoagulated and on amiodarone at one point. Patient presents today with complaint of right-sided initially flank and then upper quadrant pain for the past 3-4 days. Patient states has been coming and going but has been come little bit more persistent. Denies fevers or chills. No nausea or vomiting. States no new changes with bowel movements, denies any new diarrhea, no black or bloody stools. Denies any urinary symptoms. No rash or skin changes. 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 He states he was only daily medications are aspirin and Flomax an [id number] supplement. Has a history of appendectomy at age 32 had difficulty with healing and complications and had an additional 18 cm of his bowel removed, he was also had bilateral hip replacement and notes that with the left hip replacement several years ago developed a large blood clot, pulmonary embolism and subsequent cardiac arrhythmias was treated for these and cardiology currently only has him on an aspirin daily. States allergy to codeine. Does use tobacco. Lives on [place]. Notes family history father of pancreatic cancer, had sister developmental delay who of cancer that has suspect to be pancreatic. Related Data Home Medications Medication Instructions Recorded Confirmed sildenafil 100 mg tablet 100 mg PO PRN PRN Sexual Activity 04/29/24 05/12/24 tamsulosin 0.4 mg capsule 0.4 mg PO DAILY 04/29/24 05/12/24 Previous Rx's Medication Instructions Recorded apixaban 5 mg tablet (Eliquis) 5 mg PO BID #70 tabs 05/13/24 Allergies Allergy/AdvReac Type Severity Reaction Status Date / Time codeine [CODEINE] Allergy Intermediate Rash Verified 05/12/24 08:59 Review of Systems Review of Systems ROS Unobtainable: All systems reviewed & are unremarkable except as noted in HPI and below Patient History Medical History Pulmonary embolism (07/2021) BPH (benign prostatic hyperplasia) HTN (hypertension) History of cardioversion (07/2021) DVT (deep venous thrombosis) (07/2021) Afib (07/2021) Osteoarthritis Surgical History History of bowel resection (1992) Hx of nasal septoplasty Hx of tonsillectomy History of vasectomy Status post appendectomy (1992) Social History household members: spouse alcohol intake: current Smoking Status: Current every day smoker tobacco type: cigarettes alcohol intake frequency: a few times a week Exam Narrative Exam Narrative: GENERAL: Alert and oriented x three, male in mild distress HEENT: Head normocephalic, atraumatic, EOMI, pupils reactive, face symmetric, moist mucous membranes NECK: Supple, full range of motion CARDIOVASCULAR: Regular rate and rhythm without murmurs, rubs or gallops. RESPIRATORY: Breath sounds equal bilaterally, no wheezes rales or rhonchi. ABDOMEN: Soft, positive for right upper quadrant tenderness.. Normoactive bowel sounds all 4 quadrants. No guarding or rebound, rigidity, no mass, large healed incision of the right lower quadrant. : No CVA tenderness, patient has a very small area of ecchymosis of the left flank that is about 1 x 3 cm. EXTREMITIES: Normal range of motion, no clubbing or edema. Neurovascularly intact NEUROLOGICAL: Cranial nerves II through XII grossly intact. Moving all extremities SKIN: Warm, dry, no petechiae, no rashes or lesions. Initial Vital Signs Initial Vital Signs: Vital Signs Pulse Oximetry 96 09/02/24 07:51 Course Orders Ordered: ED Orders 09/02/24 08:00 Complete Blood Count AUTO DIFF Stat Comprehensive Metabolic Panel Stat Lipase Stat 09/02/24 08:13 US abdomen limited Stat Discontinued Medications Ondansetron HCl (Ondansetron 4 Mg/2 Ml Inj) 4 mg IV NOW PRN PRN Reason: Nausea And Vomiting Ondansetron HCl (Ondansetron 4 Mg Odt) 4 mg PO NOW PRN PRN Reason: Nausea And Vomiting Vital Signs Vital signs: Vital Signs - 8 hr 09/02/24 07:51 09/02/24 07:52 09/02/24 07:52 Temperature Pulse Rate 67 Respiratory Rate Blood Pressure 169/89 H Pulse Oximetry 96 98 Oxygen Delivery Method 09/02/24 07:53 09/02/24 08:00 09/02/24 08:00 Temperature 97.6 F Pulse Rate 68 65 Respiratory Rate 16 18 Blood Pressure 169/89 H 152/85 H Pulse Oximetry 97 97 Oxygen Delivery Method Room Air 09/02/24 08:30 09/02/24 08:31 09/02/24 08:31 Temperature Pulse Rate 65 58 L Respiratory Rate 16 Blood Pressure 128/59 L Pulse Oximetry 99 99 Oxygen Delivery Method 09/02/24 09:00 09/02/24 09:00 09/02/24 09:41 Temperature Pulse Rate 57 L 57 L Respiratory Rate 14 14 Blood Pressure 138/80 Pulse Oximetry 98 Oxygen Delivery Method 09/02/24 10:00 09/02/24 10:30 Temperature Pulse Rate 55 L 52 L Respiratory Rate 26 H Blood Pressure Pulse Oximetry 97 Oxygen Delivery Method Room Air MDM - Abdominal Pain Lab Data 09/02/24 08:00 09/02/24 08:00 Labs: Lab Results 09/02/24 Range/Units 08:00 WBC 6.8 (4.5-11.0) X10^3/uL RBC 4.74 (4.5-5.9) X10^6/uL Hgb 15.6 (13.5-17.5) g/dL Hct 46.0 (41-53) % MCV 97.0 (80-100) fL MCH 32.9 (26-34) PG MCHC 33.9 (30-36) % RDW 14.4 (11.6-14.8) % Plt Count 255 (150-400) X10^3/uL Neut % (Auto) 53.7 (50-75) % Lymph % (Auto) 21.6 L (25-40) % Miller % (Auto) 7.8 (3-14) % Eos % (Auto) 15.9 H (2-4) % Baso % (Auto) 1.0 (0-2) % Neut # (Auto) 3700 (3064-1440) /uL Lymph # (Auto) 1500 (6290-4100) /uL Miller # (Auto) 500 (0-900) /uL Eos # (Auto) 1100 H (0-450) /uL Baso # (Auto) 100 (0-100) /uL Sodium 138 (137-145) mmol/L Potassium 4.4 (3.4-5.1) mmol/L Chloride 106 (98-107) mmol/L Carbon Dioxide 26 (22-32) mmol/L BUN 18 (9-20) mg/dL Creatinine 0.84 (0.66-1.25) mg/dL Estimated GFR > 60 (>60) mL/min BUN/Creatinine Ratio 21.4 (6-22) Glucose 100 H (70-99) mg/dL Calcium 9.8 (8.4-10.2) mg/dL Total Bilirubin 0.5 (0.2-1.3) mg/dL AST 32 (17-59) IU/L ALT 25 (<50) IU/L Alkaline Phosphatase 71 (38-126) U/L Total Protein 7.2 (6.3-8.2) g/dL Albumin 4.6 (3.5-5.0) g/dL Globulin 2.6 (1.7-4.1) g/dL Albumin/Globulin Ratio 1.8 (1.0-2.8) Lipase 27 (23-300) U/L Point of care testing: Urine Dip Bedside Urine Glucose Negative Bedside Urine Bilirubin - Negative Bedside Urine Ketone - Negative Urine Specific [place] 1.015 Bedside Urine Occult Blood - Negative Bedside Urine pH 6.0 Bedside Urine Protein - Negative Bedside Urine Urobilinogen - Negative Bedside Urine Nitrite - Negative Bedside Urine Leukocytes - Negative Esterase MDM Narrative Medical decision making narrative: 63-year-old male presents with a complaint of intermittent initially right flank in the right upper quadrant pain for the past 3-4 days does not appreciate any clear exacerbating factors. He has a very small bruise in the flank area but it was quite tender of the right upper quadrant. Patient denies any recent trauma or injuries. Does note he had an appendectomy proximally 30 years ago that has somewhat complicated and resulted in additional colon resection. Labs show normal white count hemoglobin and platelets. Chemistries show normal electrolytes BUN creatinine glucose is 100 LFTs are negative lipase is 27 Point of care urine is negative Right upper quadrant ultrasound shows simple hepatic cyst measuring up to 7 mm some with internal septations, and here gallstones/sludge versus polyps, patient is not NPO mild gallbladder wall thickening measuring 4.2 mm no pericholecystic edema negative sonographic Calabrese's sign. Biliary ducts are normal range. No free fluid. If high clinical suspicion for acute cholecystitis consider HIDA scan for further evaluation. Recommend follow up ultrasound in 3-6 months to recess stone versus polyps. Patient deferred any pain medication. Reviewed findings today patient does not wish to potentially have his gallbladder removed at this time. He states his symptoms are pretty mild he would prefer to follow up as an outpatient. Did review all of his findings his need for follow up and repeat imaging. Discussed return precautions all questions answered. Discharge Plan Departure Patient Disposition: Home Clinical Impression: Gallbladder calculus Instructions: Gallstones Activity Restrictions/Additional Instructions: Does not appear gallbladder is likely the source of your symptoms. It does show either gallstones/sludge versus gallbladder polyps the wall is mildly thickened but because you had coffee with cream shortly before technically you are not NPO and this could be from contraction of the gallbladder making it appear more thickened then it was. As you have elected to return home it is recommended that you follow up ultrasound at 3-6 months to re-evaluate. You can take acetaminophen up to a 1000 mg every 6 hours as needed for pain. If you are having persistent symptoms but they are well controlled please call and follow up with General surgery contacts included below. If your symptoms are rapidly worsening, you are having fevers, increasing pain, vomiting, lightheadedness or passing out, changing location of pain, black or bloody stools or other new or concerning changes return to the emergency department. Prescriptions: No Action sildenafil 100 mg tablet 100 mg PO PRN PRN (Reason: Sexual Activity) tamsulosin 0.4 mg capsule 0.4 mg PO DAILY Eliquis 5 mg Tablet 5 mg PO BID Qty: 70 0RF Referrals: Rosario Hull MD [Primary Care Provider] - Max Dozier MD [Physician] - Stand Alone Forms: Patient Portal/API/Survey
--- NOTE | 2024-09-02 08:13 | DI.US.S_ITS ---
PROCEDURE: US ABDOMEN LIMITED INDICATIONS: RUQ pain, tender w/ palp TECHNIQUE: Real-time scanning was performed of the abdominal and retroperitoneal organs, with image documentation. COMPARISON: [facility], US, US ABDOMEN LIMITED, 05/01/2022, 12:16. FINDINGS: Liver: Liver is normal in size and increased in echogenicity. Simple hepatic cysts measuring up to 7 mm, some with thin internal septations. Gallbladder: Adherent gallstones/sludge versus polyps. Patient is not NPO, mild gallbladder wall thickening measuring 4.2 mm. The No pericholecystic edema. Negative sonographic Calabrese's sign. Biliary ducts: Intrahepatic bile ducts are non-dilated. Extrahepatic bile duct caliber measures 3.5 mm. Normal is 6-7 mm or less in diameter, or 10 mm or less post-cholecystectomy. Pancreas: Visualized portions of the pancreas are sonographically normal. Tail is not well visualized. Miscellaneous: No free abdominal fluid. IMPRESSION: Adherent gallstones/sludge versus gallbladder polyps. There is mild gallbladder wall thickening measuring up to 4.2 mm, however patient was not NPO prior to exam and this may be secondary to non NPO status. No pericholecystic fluid or sonographic Calabrese sign. If there is high clinical suspicion for acute cholecystitis, consider HIDA scan for further evaluation. Recommend follow-up ultrasound in 3-6 months to reassess stones versus polyps. Dictated by: Myron Ospina M.D. on 09/02/2024 at 10:21 Approved by: Myron Ospina M.D. on 09/02/2024 at 10:24
[2024-09-02 08:15] LABS: Add Manual Diff / Slide Review NO; Basophils Absolute Auto 100 /uL (0-100); Eosinophils Absolute Auto 1100 /uL (0-450); Eosinophils Percent Auto 15.9 % (2-4); Hemoglobin 15.6 g/dL (13.5-17.5); Lymphocytes Absolute Auto 1500 /uL (1100-4500); Lymphocytes Percent Auto 21.6 % (25-40); Mean Corpuscular HGB Conc 33.9 % (30-36); Mean Corpuscular Hemoglobin 32.9 PG (26-34); Monocytes Absolute Auto 500 /uL (0-900); Monocytes Percent Auto 7.8 % (3-14); Neutrophils Absolute Auto 3700 /uL (1500-7000); Neutrophils Percent Auto 53.7 % (50-75); Platelet Count 255 X10^3/uL (150-400); Red Blood Cell Count 4.74 X10^6/uL (4.5-5.9); Red Cell Distribution Width 14.4 % (11.6-14.8); White Blood Cell Count 6.8 X10^3/uL (4.5-11.0)
[2024-09-02 08:52] LABS: Alanine Aminotransferase 25 IU/L (<50); Albumin 4.6 g/dL (3.5-5.0); Albumin Globulin Ratio 1.8 (1.0-2.8); Alkaline Phosphatase 71 U/L (38-126); Aspartate Aminotransferase 32 IU/L (17-59); BUN Creatinine Ratio 21.4 (6-22); Bilirubin Total 0.5 mg/dL (0.2-1.3); Blood Urea Nitrogen 18 mg/dL (9-20); Calcium 9.8 mg/dL (8.4-10.2); Carbon Dioxide 26 mmol/L (22-32); Chloride 106 mmol/L (98-107); Estimated Glomerular Filt Rate > 60 mL/min (>60); Globulin 2.6 g/dL (1.7-4.1); Glucose 100 mg/dL (70-99); HEMOLYSIS < 15 (0-50); Lipase 27 U/L (23-300); Potassium 4.4 mmol/L (3.4-5.1); Sodium 138 mmol/L (137-145); Total Protein 7.2 g/dL (6.3-8.2)
== END 2024-09-02 11:02 | disposition home or self-care (01) ==
PROVIDERS: Emergency Provider Emergency Medicine; Family Provider Family Medicine; PCP Family Medicine
DX: K80.20 Calculus of gallbladder without cholecystitis without obstruction (principal)
CPT/HCPCS: 36415; 76705; 80053; 81003; 83690; 85025; 99283; 99284

== ENCOUNTER 2025-02-22 09:10 | Emergency (ER) | payer MEDICARE, OTHER, SELFPAY ==
[2024-05-12 08:50] VITALS: BMI 28.2
[2025-02-22 09:18] VITALS: O2SAT 99
[2025-02-22 09:19] VITALS: BP 173/90; PULSE 69; O2SAT 99
[2025-02-22 09:21] VITALS: BP 173/90; PULSE 65; RESP 16; TEMP 36.6; O2SAT 97; BMI 27.1
[2025-02-22] MEDS: PROPARACAINE 0.5% OPHTH SOL 1 DROPS EYE-RIGHT (09:28)
[2025-02-22 09:30] VITALS: BP 143/83; PULSE 60; O2SAT 99
[2025-02-22 10:00] VITALS: BP 136/79; PULSE 55; O2SAT 97
--- NOTE | 2025-02-22 10:23 | ED_ITS ---
HPI - Eye Problem
--- NOTE | 2025-02-22 10:23 | ED.EYEPROB ---
HPI - Eye Problem General Chief complaint: Eye Problems Stated complaint: right eye pain. Time Seen by Provider: 02/22/25 09:51 Source: patient, RN notes reviewed and old records reviewed Mode of arrival: Ambulatory Limitations: no limitations Related Data Home Medications ?Medication ?Instructions ?Recorded ?Confirmed sildenafil 100 mg tablet 100 mg PO PRN PRN Sexual Activity 04/29/24 02/22/25 tamsulosin 0.4 mg capsule 0.4 mg PO DAILY 04/29/24 02/22/25 aspirin 81 mg tablet,delayed 81 mg PO DAILY 09/23/24 02/22/25 release (Adult Low Dose Aspirin) lactobacillus combination no.9 PO 09/23/24 02/22/25 [Adult 50 Plus Probiotic] Previous Rx's ?Medication ?Instructions ?Recorded amoxicillin 875 mg-potassium 1 tab PO BID #14 tabs 02/17/25 clavulanate 125 mg tablet fluticasone propionate 50 1 spray intranasal BID #16 grams 02/17/25 mcg/actuation nasal spray,suspension (Flonase Allergy Relief) Allergies Allergy/AdvReac Type Severity Reaction Status Date / Time codeine (CODEINE) Allergy Intermediate Rash Verified 02/22/25 09:14 Review of Systems Review of Systems ROS Unobtainable: All systems reviewed & are unremarkable except as noted in HPI and below Patient History Medical History FH: bilateral hip replacements Pulmonary embolism (07/2021) BPH (benign prostatic hyperplasia) HTN (hypertension) History of cardioversion (07/2021) DVT (deep venous thrombosis) (07/2021) Afib (07/2021) Osteoarthritis Surgical History History of bowel resection (1992) Hx of nasal septoplasty Hx of tonsillectomy History of vasectomy Status post appendectomy (1992) Family History Father Pancreatic cancer Sister Pancreatic cancer Social History marital status: details: Retired 09/21/24 household members: spouse lives independently: Yes occupational status: previously employed alcohol intake: current substance use type: does not use tobacco type: cigarettes alcohol intake frequency: a few times a week Exam Initial Vital Signs Initial Vital Signs: Vital Signs Temperature 98 F 02/22/25 09:21 Pulse Rate 65 02/22/25 09:21 Respiratory Rate 16 02/22/25 09:21 Blood Pressure 173/90 H 02/22/25 09:21 Pulse Oximetry 97 02/22/25 09:21 Oxygen Delivery Method Room Air 02/22/25 09:21 Course Orders Ordered: Fluorescein Sodium (Fluorescein 1 Mg Strip) 1 mg EYE-RIGHT NOW PRN PRN Reason: Pain, Severe (7-10) Proparacaine HCl (Proparacaine 0.5% Ophth Jackie) 1 drops EYE-RIGHT PRN PRN PRN Reason: Pain, Severe (7-10) Last Admin: 02/22/25 09:28 Dose: 1 drop Documented By: SHAWN Vital Signs Vital signs: Vital Signs - 8 hr 02/22/25 09:21 Temperature 98 F Pulse Rate 65 Respiratory Rate 16 Blood Pressure 173/90 H Pulse Oximetry 97 Oxygen Delivery Method Room Air Discharge Plan Departure Prescriptions: No Action fluticasone propionate [Flonase Allergy Relief] 50 mcg/actuation spray,suspension 1 spray intranasal BID Qty: 16 0RF Rx Instructions: administer into each nostril amoxicillin-pot clavulanate 875-125 mg tablet 1 tab PO BID Qty: 14 0RF aspirin [Adult Low Dose Aspirin] 81 mg tablet,delayed release (DR/EC) 81 mg PO DAILY lactobacillus combination no.9 [Adult 50 Plus Probiotic] PO sildenafil 100 mg tablet 100 mg PO PRN PRN (Reason: Sexual Activity) tamsulosin 0.4 mg capsule 0.4 mg PO DAILY Referrals: Rosario Hull MD [Primary Care Provider, Family Practice]
--- NOTE | 2025-02-22 11:59 | DI.CT.S_ITS ---
PROCEDURE: CT ORBIT BI W CON
--- NOTE | 2025-02-22 12:21 | ED_ITS ---
HPI - Eye Problem
--- NOTE | 2025-02-22 12:21 | ED.EYEPROB ---
HPI - Eye Problem <Kane Haskins PA-C - Last Filed: 02/22/25 13:54> General Chief complaint: Eye Problems Stated complaint: right eye pain. Time Seen by Provider: 02/22/25 09:51 Source: patient, RN notes reviewed and old records reviewed Mode of arrival: Ambulatory Limitations: no limitations History of Present Illness HPI Narrative: 64-year-old male presents to the ED with 1 day of right eye irritation and pain around the eye. Patient states that he was diagnosed with a sinus infection last week, has been on Augmentin and Flonase for it. Patient today is complaining of right eye irritation, watering, inability to keep it open as well as pain and redness around the right eye. Patient noted these symptoms in the middle of the night. Patient not aware of any foreign object or trauma to the eye. Patient endorses slightly blurry vision in the right eye but no significant deficits in vision. No fever, chills. Patient also dropped a very heavy weight last week, which was loud enough to cause him to have ringing in his ears since then. Related Data Home Medications ?Medication ?Instructions ?Recorded ?Confirmed sildenafil 100 mg tablet 100 mg PO PRN PRN Sexual Activity 04/29/24 02/22/25 tamsulosin 0.4 mg capsule 0.4 mg PO DAILY 04/29/24 02/22/25 aspirin 81 mg tablet,delayed 81 mg PO DAILY 09/23/24 02/22/25 release (Adult Low Dose Aspirin) lactobacillus combination no.9 PO 09/23/24 02/22/25 [Adult 50 Plus Probiotic] Previous Rx's ?Medication ?Instructions ?Recorded amoxicillin 875 mg-potassium 1 tab PO BID #14 tabs 02/17/25 clavulanate 125 mg tablet fluticasone propionate 50 1 spray intranasal BID #16 grams 02/17/25 mcg/actuation nasal spray,suspension (Flonase Allergy Relief) cefdinir 300 mg capsule 300 mg PO BID 5 days #10 caps 02/22/25 ciprofloxacin HCl 0.3 % eye drops 2 drp EYE-RIGHT Q6HR 5 days #2.5 mL 02/22/25 sulfamethoxazole 800 1 tab PO BID 5 days #10 tabs 02/22/25 mg-trimethoprim 160 mg tablet (Bactrim DS) Allergies Allergy/AdvReac Type Severity Reaction Status Date / Time codeine (CODEINE) Allergy Intermediate Rash Verified 02/22/25 09:14 Review of Systems <Kane Haskins PA-C - Last Filed: 02/22/25 13:54> Constitutional Constitutional: Denies chills, Denies fatigue, Denies fever(s), Denies frequent falls, Denies lethargy and Denies weakness Eyes Eyes: Denies change in vision, Denies eye discharge, Denies irritation and Denies loss of vision Comments: Right eye irritation, tearing. Pain and redness around the right eye ENT Ears, Nose, Mouth, and Throat: Denies change in voice, Denies dizziness, Denies neck pain, Denies sore throat and Denies throat swelling Cardiovascular Cardiovascular: Denies chest pain, Denies irregular heart rhythm, Denies lightheadedness, Denies palpitations, Denies dyspnea, Denies dyspnea on exertion and Denies orthopnea Respiratory Respiratory: Denies cough, Denies dyspnea, Denies dyspnea on exertion and Denies wheezing Gastrointestinal Gastrointestinal: Denies abdominal pain, Denies change in bowel habits, Denies diarrhea, Denies nausea and Denies vomiting Musculoskeletal Musculoskeletal: Denies neck pain and Denies numbness Integumentary/Breasts Skin/Breast: Denies pruritus, Denies erythema, Denies rash and Denies wounds Neurologic Neurologic: Denies behavioral changes, Denies confusion, Denies dizziness, Denies frequent falls, Denies loss of vision, Denies numbness and Denies weakness Psychiatric Psychiatric: Denies anxiety, Denies behavioral changes, Denies confusion, Denies depression, Denies homicidal ideation and Denies suicidal ideation Endocrine Endocrine: Denies fatigue, Denies flushing and Denies palpitations Hematologic/Lymphatic Hematologic/Lymphatic: Denies easy bruising Allergic/Immunologic Allergic/Immunologic: Denies urticaria, Denies throat swelling and Denies wheezing Patient History <Kane Haskins PA-C - Last Filed: 02/22/25 13:54> Medical History FH: bilateral hip replacements Pulmonary embolism (07/2021) BPH (benign prostatic hyperplasia) HTN (hypertension) History of cardioversion (07/2021) DVT (deep venous thrombosis) (07/2021) Afib (07/2021) Osteoarthritis Surgical History History of bowel resection (1992) Hx of nasal septoplasty Hx of tonsillectomy History of vasectomy Status post appendectomy (1992) Family History Father Pancreatic cancer Sister Pancreatic cancer Social History marital status: details: Retired 09/21/24 household members: spouse lives independently: Yes occupational status: previously employed alcohol intake: current substance use type: does not use tobacco type: cigarettes alcohol intake frequency: a few times a week Exam <Kane Haskins PA-C - Last Filed: 02/22/25 13:54> Narrative Exam Narrative: Const General:?cooperative, healthy appearing and comfortable HENMO Head:?normal to inspection Ears:?hearing grossly normal bilaterally; bilateral tympani are normal Nose:?external nose normal Face and sinus:?normal facial exam and sinuses nontender Mouth:?oral mucosae normal Throat:?posterior oropharynx normal Eyes General:? Conjunctival injection of the right eye, tearing. Fluorescein exam is positive for a large corneal abrasion of the right eye. There is also periorbital erythema, edema, tenderness around the right eye. No pain with extraocular movements. Visual acuity is 20/20 OU without correction. Neck Neck:?normal visual inspection and no lymphadenopathy noted Resp Effort & Inspection:?normal respiratory effort Auscultation:?clear to auscultation bilaterally Cardio Rate:?regular rate Rhythm:?regular rhythm Neuro General:?patient alert, patient awake and patient oriented x3 Initial Vital Signs Initial Vital Signs: Vital Signs Pulse Oximetry 99 02/22/25 09:18 <Awilda Hollins DO - Last Filed: 02/22/25 16:09> Initial Vital Signs Initial Vital Signs: Vital Signs Pulse Oximetry 99 02/22/25 09:18 Course <Kane Haskins PA-C - Last Filed: 02/22/25 13:54> Orders Ordered: ED Orders 02/22/25 11:59 CT orbit BI w con Stat Discontinued Medications Fluorescein Sodium (Fluorescein 1 Mg Strip) 1 mg EYE-RIGHT NOW PRN PRN Reason: Pain, Severe (7-10) Fluorescein Sodium (Fluorescein 1 Mg Strip) 1 mg EYE-RIGHT NOW ONE Stop: 11/03/25 11:48 Last Admin: 02/22/25 12:43 Dose: 1 mg Documented By: SHAWN Proparacaine HCl (Proparacaine 0.5% Ophth Jackie) 1 drops EYE-RIGHT PRN PRN PRN Reason: Pain, Severe (7-10) Last Admin: 02/22/25 09:28 Dose: 1 drop Documented By: SHAWN Vital Signs Vital signs: Vital Signs - 8 hr 02/22/25 09:18 02/22/25 09:19 02/22/25 09:19 Temperature Pulse Rate 69 Respiratory Rate Blood Pressure 173/90 H Pulse Oximetry 99 99 Oxygen Delivery Method 02/22/25 09:21 02/22/25 09:30 02/22/25 09:30 Temperature 98 F Pulse Rate 65 60 Respiratory Rate 16 Blood Pressure 173/90 H 143/83 H Pulse Oximetry 97 99 Oxygen Delivery Method Room Air 02/22/25 10:00 02/22/25 10:00 02/22/25 12:38 Temperature Pulse Rate 55 L Respiratory Rate Blood Pressure 136/79 146/80 H Pulse Oximetry 97 Oxygen Delivery Method 02/22/25 12:38 Temperature Pulse Rate 60 Respiratory Rate Blood Pressure Pulse Oximetry 98 Oxygen Delivery Method <Awilda Hollins, - Last Filed: 02/22/25 16:09> Orders Ordered: ED Orders 02/22/25 11:59 CT orbit BI w con Stat Discontinued Medications Fluorescein Sodium (Fluorescein 1 Mg Strip) 1 mg EYE-RIGHT NOW PRN PRN Reason: Pain, Severe (7-10) Fluorescein Sodium (Fluorescein 1 Mg Strip) 1 mg EYE-RIGHT NOW ONE Stop: 02/22/25 11:48 Last Admin: 02/22/25 12:43 Dose: 1 mg Documented By: SHAWN Proparacaine HCl (Proparacaine 0.5% Ophth Jackie) 1 drops EYE-RIGHT PRN PRN PRN Reason: Pain, Severe (7-10) Last Admin: 02/22/25 09:28 Dose: 1 drop Documented By: SHAWN Vital Signs Vital signs: Vital Signs - 8 hr 02/22/25 09:18 02/22/25 09:19 02/22/25 09:19 Temperature Pulse Rate 69 Respiratory Rate Blood Pressure 173/90 H Pulse Oximetry 99 99 Oxygen Delivery Method 02/22/25 09:21 02/22/25 09:30 02/22/25 09:30 Temperature 98 F Pulse Rate 65 60 Respiratory Rate 16 Blood Pressure 173/90 H 143/83 H Pulse Oximetry 97 99 Oxygen Delivery Method Room Air 02/22/25 10:00 02/22/25 10:00 02/22/25 12:38 Temperature Pulse Rate 55 L Respiratory Rate Blood Pressure 136/79 146/80 H Pulse Oximetry 97 Oxygen Delivery Method 02/22/25 12:38 Temperature Pulse Rate 60 Respiratory Rate Blood Pressure Pulse Oximetry 98 Oxygen Delivery Method MDM - Eye Problem <Kane Haskins PA-C - Last Filed: 02/22/25 13:54> MDM Narrative Medical decision making narrative: 64-year-old male presents to the ED with 1 day of right eye irritation and pain around the eye. Concern for corneal abrasion versus foreign object versus preseptal cellulitis versus orbital cellulitis versus other. Fluorescein exam is positive for a large corneal abrasion. Visual acuity is 20/20 OU without correction. Will obtain CT orbits to rule out orbital cellulitis. Will re-evaluate. CT scan of the orbits shows very mild right periorbital edema. There is no abscess cavity. The extraocular muscles are normal and symmetrical in appearance. No retrobulbar masses or fat abnormalities. Right globe and orbit are otherwise unremarkable. Will treat for the corneal abrasion, preseptal cellulitis. Prescribed antibiotic drops for the abrasion, p.o. antibiotics for the preseptal cellulitis. Okay to use proparacaine sparingly for the next few hours, 1 drop in the right eye every hour. Not to be used past 24 hours. Recommend follow-up with ophthalmology as soon as possible. ED return precautions were discussed with patient. Patient verbalized understanding. Medical records reviewed: Yes Discharge Plan Departure Patient Disposition: Home Clinical Impression: Preseptal cellulitis of right eye Corneal abrasion Qualifiers: Encounter type: initial encounter Laterality: right Qualified Code(s): S05.01XA - Injury of conjunctiva and corneal abrasion without foreign body, right eye, initial encounter Instructions: DI for Corneal Abrasion Activity Restrictions/Additional Instructions: You were evaluated in the emergency department today for right eye irritation. You have a corneal abrasion in the right eye as well as an infection of the skin surrounding the right eye. You are being prescribed antibiotic eyedrops as well as to oral antibiotics for the infection. You may also apply 1 drop of proparacaine every hour for 24 hours. Please do not use the proparacaine past 24 hours. You may also take Tylenol, ibuprofen for pain. Please follow-up with your lunchroom attendant as soon as possible. Return to the ED if you have worsening symptoms. Prescriptions: New ciprofloxacin HCl 0.3 % drops 2 drp EYE-RIGHT Q6HR 5 Days Qty: 2.5 0RF sulfamethoxazole-trimethoprim [Bactrim DS] 800-160 mg tablet 1 tab PO BID 5 Days Qty: 10 0RF cefdinir 300 mg capsule 300 mg PO BID 5 Days Qty: 10 0RF No Action fluticasone propionate [Flonase Allergy Relief] 50 mcg/actuation spray,suspension 1 spray intranasal BID Qty: 16 0RF Rx Instructions: administer into each nostril amoxicillin-pot clavulanate 875-125 mg tablet 1 tab PO BID Qty: 14 0RF aspirin [Adult Low Dose Aspirin] 81 mg tablet,delayed release (DR/EC) 81 mg PO DAILY lactobacillus combination no.9 [Adult 50 Plus Probiotic] PO sildenafil 100 mg tablet 100 mg PO PRN PRN (Reason: Sexual Activity) tamsulosin 0.4 mg capsule 0.4 mg PO DAILY Referrals: Rosario Hull MD [Primary Care Provider, Family Practice] Stand Alone Forms: Patient Portal/API ED Sign-out <Awilda Hollins DO - Last Filed: 02/22/25 16:09> Cosign ED Attending Denzel Attestation: I was immediately available in the department for consultation.
[2025-02-22 12:38] VITALS: BP 146/80; PULSE 60; O2SAT 98
[2025-02-22] MEDS: FLUORESCEIN 1 MG STRIP EYE-RIGHT (12:43)
== END 2025-02-22 13:30 | disposition home or self-care (01) ==
PROVIDERS: Emergency Provider Student in an Organized Health Care Education/Training Program; Family Provider Family Medicine; PCP Family Medicine
DX: L03.213 Periorbital cellulitis (principal); S05.01XA Injury of conjunctiva and corneal abrasion without foreign body, right eye, initial encounter
CPT/HCPCS: 70481; 99284; Q9967